=== PATIENT | male | born 1945 | race Caucasian/White ===

== ENCOUNTER 2019-01-05 12:05 | Inpatient (IN) | payer OTHER | END 2019-01-07 18:25 | disposition home or self-care (01) | LOC: EDH 12:05 → EDHIP 15:10 → 2DH 23:23 | DX: I44.1 Atrioventricular block, second degree (principal); R07.9 Chest pain, unspecified; R00.2 Palpitations; I47.1 Supraventricular tachycardia; I10 Essential (primary) hypertension; E78.5 Hyperlipidemia, unspecified ==

== ENCOUNTER 2020-02-16 16:55 | Inpatient (IN) | payer MEDICARE, OTHER ==
[~2020-02-16] VITALS: Ht 182.9 cm; Wt 105.5 kg
[~2020-02-16 16:55] MED LIST: ASCO500C18 PO; ASPI-556 PO; ATOR40TA69 PO; CARV12.580 PO; CETI10TA57 PO; DIGO250T73 PO; DOCU100T PO; DOXA8TAB81 PO; MULT-1289 PO; OMEP20CA12 PO; OXYB5TAB15 PO; SENN8.6T52 PO; SERT50TA12 PO
[2020-02-16 18:34] LABS: APPEARANCE,URINE CLOUDY (CLEAR); BILIRUBIN,URINE NEGATIVE (NEGATIVE); COLOR,URINE YELLOW (YELLOW); GLUCOSE, URINE (UA) NEGATIVE (NEGATIVE); KETONES,URINE 15 mg/dL (NEGATIVE); LEUKOCYTE ESTERASE ,URINE MODERATE (NEGATIVE); NITRATE,URINE NEGATIVE (NEGATIVE); OCCULT BLOOD,URINE NEGATIVE (NEGATIVE); PH,URINE 5.5 (5.0-8.0); PROTEIN,URINE 100 mg/dL (NEGATIVE); UROBILINOGEN,URINE 0.2 mg/dL (0.2-1.0)
[2020-02-16 18:39] LABS: BASOPHILS % (AUTO) 0.3 % (0.0-5.0); HEMATOCRIT 40.6 % (42-54); LYMPHOCYTES % (AUTO) 5.8 % (21.0-51.0); MEAN CORPUSCULAR HEMOGLOBIN 34.6 pg (27.0-33.0); MEAN CORPUSCULAR HGB CONC 35.2 g/dL (32.0-36.0); MEAN CORPUSCULAR VOLUME 98.3 fL (79-99); MONOCYTES % (AUTO) 8.5 % (3.0-13.0); NEUTROPHILS % (AUTO) 84.7 % (40.0-77.0); PLATELET COUNT (AUTO) 184 K/uL (130-400); RED BLOOD CELL COUNT(AUTO) 4.13 MIL/uL (4.50-6.20); RED CELL DISTRIBUTION WIDTH 11.9 % (11.0-15.5); WHITE BLOOD COUNT (AUTO) 26.8 K/uL (4.8-10.8)
[2020-02-16 18:51] LABS: BACTERIA,URINE Moderate /HPF (None Seen); MUCUS,URINE Moderate LPF (None Seen); RBC,URINE 0-1 /HPF (0-1); SQUAMOUS EPITHELIAL CELL,UR Few /HPF (0-2); WBC,URINE 26-50 /HPF (0-1)
[2020-02-16 18:55] LABS: CREATININE 1.4 mg/dL (0.5-1.5); POTASSIUM 3.8 mmol/L (3.5-5.1)
[2020-02-16 18:59] LABS: ALBUMIN 3.7 g/dL (3.5-5.0); BILIRUBIN,TOTAL 0.8 mg/dL (0.2-1.0); TOTAL PROTEIN, SERUM 7.2 g/dL (6.0-8.3)
[2020-02-16 19:32] LABS: INR 1.03 (0.85-1.15); PARTIAL THROMBOPLASTIN TIME 33.8 SEC (26.3-35.5); PROTHROMBIN TIME 11.1 SEC (9.6-11.6)
[2020-02-16] MEDS ORDERED: MEROPENEM 500 MG VIAL ONE (19:48)
[2020-02-16 19:53] LABS: CREATINE KINASE, TOTAL 90 U/L (21-232); MYOGLOBIN 132 ng/mL (10-92); TROPONIN I < 0.04 ng/mL (0.00-0.06)
[2020-02-16] MEDS ORDERED: ONDANSETRON HCL 4 MG/2 ML VIAL IV PRN (20:45)
[2020-02-16] MEDS: MEROPENEM 1 GM VIAL IVP SCH (20:45)
[2020-02-16] MEDS ORDERED: ACETAMINOPHEN 325 MG TAB PO PRN ×2 (20:45)
[2020-02-16] MEDS: SODIUM CHLORIDE 0.9% 1000ML 1,000 ML IV SCH (20:45)
[2020-02-16] MEDS ORDERED: LACTULOSE 20 GM/30 ML UDCUP PO PRN (20:45)
[2020-02-16] MEDS: FAMOTIDINE/PF 20 MG/2 ML VIAL IV SCH (21:00)
[2020-02-16] MEDS: OXYBUTYNIN 5 MG TAB.SR.24H PO SCH (21:15)
[2020-02-16] MEDS: PHENAZOPYRIDINE HCL 200 MG TABLET PO SCH (21:45)
[2020-02-16] MEDS ORDERED: PHENAZOPYRIDINE HCL 200 MG TABLET ONE (22:53)
[2020-02-17] VITALS (7 sets, daily range): BP systolic 123–138; BP diastolic 56–72
[2020-02-17] MEDS ORDERED: DILT-19 PO (00:59)
[2020-02-17] MEDS ORDERED: PSYL1CAP2 PO (01:08)
[2020-02-17] MEDS ORDERED: METH500T6 PO (01:08)
[2020-02-17] MEDS: SODIUM CHLORIDE 0.9% 1000ML 1,000 ML IV SCH (01:21)
--- NOTE | 2020-02-17 03:56 | NUR ---
NOTE NOTIFIED Nataliia JOSE NP THAT PATIENT HAD BORDEN REMOVED. VOIDED ALMOST 8 HRS IN DIAPER POST REMOVAL. A BLADDER SCAN WAS DONE AND FOUND POST RESIDUAL BLADDER SCAN READING 355ML. INSTRUCTED TO WAIT ANOTHER 6HRS AND IF PATIENT HAS NOT VOIDED AGAIN, DO BLADDER SCAN. IF OUTPUT GREATER THAN 250ML, INSERT BORDEN. Addendum: 02/17/20 at 0404 by FREDDIE LYN RN RN DISREGARD NOTE. WRONG PATIENT.
--- NOTE | 2020-02-17 03:59 | NUR ---
NOTE INFORMED Nataliia JOSE BUSINESS ANALYST OF HOME MEDICATIONS READY TO REVIEW.
[2020-02-17 04:55] LABS: BASOPHILS % (AUTO) 0.2 % (0.0-5.0); EOSINOPHILS % (AUTO) 0.1 % (0.0-8.0); HEMATOCRIT 38.1 % (42-54); LYMPHOCYTES % (AUTO) 6.3 % (21.0-51.0); MEAN CORPUSCULAR HEMOGLOBIN 33.9 pg (27.0-33.0); MEAN CORPUSCULAR HGB CONC 33.9 g/dL (32.0-36.0); MEAN CORPUSCULAR VOLUME 100.3 fL (79-99); MONOCYTES % (AUTO) 8.9 % (3.0-13.0); NEUTROPHILS % (AUTO) 83.2 % (40.0-77.0); PLATELET COUNT (AUTO) 178 K/uL (130-400); RED CELL DISTRIBUTION WIDTH 12.1 % (11.0-15.5); WHITE BLOOD COUNT (AUTO) 24.6 K/uL (4.8-10.8)
[2020-02-17 05:40] LABS: ALBUMIN 3.3 g/dL (3.5-5.0); BILIRUBIN,TOTAL 0.7 mg/dL (0.2-1.0); CREATININE 1.1 mg/dL (0.5-1.5); POTASSIUM 3.6 mmol/L (3.5-5.1); TOTAL PROTEIN, SERUM 6.5 g/dL (6.0-8.3)
[2020-02-17] MEDS: MEROPENEM 1 GM VIAL IVP SCH ×3 (05:49→20:44)
--- NOTE | 2020-02-17 09:37 | NUR ---
DR QUINONEZ PAGED REGARDING CONSULT. PENDING CB
[2020-02-17] MEDS: PHENAZOPYRIDINE HCL 200 MG TABLET PO SCH ×2 (09:43→20:43)
[2020-02-17] MEDS: OXYBUTYNIN 5 MG TAB.SR.24H PO SCH (09:43)
[2020-02-17] MEDS: FAMOTIDINE/PF 20 MG/2 ML VIAL IV SCH (09:43)
[2020-02-17] MEDS ORDERED: CYCLOBENZAPRINE HCL 10 MG TABLET PO PRN (10:15)
--- NOTE | 2020-02-17 12:21 | NUR ---
INITIAL SW spoke to patient's spouse, Robyn Erazo, . Patient has no home services. DME: [facility]. Patient is able to complete ADL's independently and drives. [place]CP is [place] . Pharmacy is [place] . DCP is home. Addendum: 02/17/20 at 1224 by SHORTY CERVANTES SS Amended: Links added.
[2020-02-17] MEDS ORDERED: IOHEXOL-350 75 ML VIAL IV ONE (18:18)
[2020-02-17] MEDS: NAPROXEN 500 MG TABLET PO SCH (20:37)
[2020-02-17] MEDS: CARVEDILOL 12.5 MG TABLET PO SCH (20:44)
[2020-02-17] MEDS: DOCUSATE SODIUM 100 MG CAP PO SCH (20:44)
[2020-02-17] MEDS: ATORVASTATIN CALCIUM 20 MG TABLET PO SCH (20:44)
[2020-02-18 03:36] VITALS: BP 130/69
[2020-02-18] MEDS: SODIUM CHLORIDE 0.9% 1000ML 1,000 ML IV SCH (03:40)
[2020-02-18 05:34] LABS: BASOPHILS % (AUTO) 0.3 % (0.0-5.0); EOSINOPHILS % (AUTO) 1.5 % (0.0-8.0); HEMATOCRIT 35.3 % (42-54); MEAN CORPUSCULAR HEMOGLOBIN 34.1 pg (27.0-33.0); MEAN CORPUSCULAR HGB CONC 33.7 g/dL (32.0-36.0); MEAN CORPUSCULAR VOLUME 101.1 fL (79-99); MONOCYTES % (AUTO) 9.3 % (3.0-13.0); NEUTROPHILS % (AUTO) 80.6 % (40.0-77.0); PLATELET COUNT (AUTO) 169 K/uL (130-400); RED BLOOD CELL COUNT(AUTO) 3.49 MIL/uL (4.50-6.20); RED CELL DISTRIBUTION WIDTH 12.2 % (11.0-15.5); WHITE BLOOD COUNT (AUTO) 20.2 K/uL (4.8-10.8)
[2020-02-18] MEDS: MEROPENEM 1 GM VIAL IVP SCH (05:37)
[2020-02-18 05:51] LABS: ALBUMIN 2.8 g/dL (3.5-5.0); BILIRUBIN,TOTAL 0.4 mg/dL (0.2-1.0); CREATININE 0.9 mg/dL (0.5-1.5); POTASSIUM 3.6 mmol/L (3.5-5.1)
[2020-02-18 08:00] VITALS: BP 139/69
[2020-02-18] MEDS: ASPIRIN 81 MG EC TAB PO SCH (09:00)
[2020-02-18] MEDS: NAPROXEN 500 MG TABLET PO SCH ×2 (09:00→21:17)
[2020-02-18] MEDS: DOXAZOSIN MESYLATE 2 MG TABLET PO SCH (09:00)
[2020-02-18] MEDS: CARVEDILOL 12.5 MG TABLET PO SCH ×2 (09:00→21:00)
[2020-02-18] MEDS: PANTOPRAZOLE SODIUM 40 MG TABLET.DR PO SCH (09:00)
[2020-02-18] MEDS ORDERED: TAMSULOSIN HCL 0.4 MG CAP.ER.24H PO SCH (09:00)
[2020-02-18] MEDS: DILTIAZEM HCL 120 MG CAP.SR.24H PO SCH (09:00)
[2020-02-18] MEDS: PSYLLIUM SEED 1 EACH PACKET PO SCH (09:00)
[2020-02-18] MEDS ORDERED: OXYBUTYNIN CHLORIDE 5 MG TABLET PO SCH (09:00)
[2020-02-18] MEDS: DOCUSATE SODIUM 100 MG CAP PO SCH ×2 (09:00→21:00)
[2020-02-18] MEDS: SERTRALINE HCL 50 MG TABLET PO SCH (09:00)
[2020-02-18] MEDS: SENNOSIDES 8.6 MG TABLET PO SCH (09:00)
[2020-02-18] MEDS: ASCORBIC ACID 500 MG TAB PO SCH (09:00)
[2020-02-18] MEDS: MULTIVITAMIN WITH MINERALS TABLET PO SCH (09:00)
[2020-02-18] MEDS: PHENAZOPYRIDINE HCL 200 MG TABLET PO SCH ×2 (10:17→21:18)
[2020-02-18 11:13] VITALS: BP 109/58
[2020-02-18] MEDS ORDERED: CEFTRIAXONE SODIUM 1 GM IVP SCH (11:45)
[2020-02-18 16:00] VITALS: BP 138/70
[2020-02-18 19:30] VITALS: BP 135/69
[2020-02-18] MEDS: ATORVASTATIN CALCIUM 20 MG TABLET PO SCH (21:00)
[2020-02-18] MEDS: LEVOFLOXACIN 500 MG TABLET PO SCH (21:15)
[2020-02-18 23:04] VITALS: BP 132/54
[2020-02-19] MEDS: SODIUM CHLORIDE 0.9% 1000ML 1,000 ML IV SCH (03:40)
[2020-02-19 04:00] VITALS: BP 145/76
[2020-02-19 05:35] LABS: HEMATOCRIT 36.8 % (42-54); MEAN CORPUSCULAR HEMOGLOBIN 33.2 pg (27.0-33.0); MEAN CORPUSCULAR HGB CONC 33.4 g/dL (32.0-36.0); MEAN CORPUSCULAR VOLUME 99.5 fL (79-99); PLATELET COUNT (AUTO) 204 K/uL (130-400); WHITE BLOOD COUNT (AUTO) 13.5 K/uL (4.8-10.8)
[2020-02-19 05:44] LABS: BAND NEUTROPHILS % (MANUAL) 4 % (0-2); EOSINOPHILS % (MANUAL) 4 % (1-6); LYMPHOCYTES % (MANUAL) 9 % (22-44); MAN.DIFF COMMENT-IMPRESSION MANUAL DIFFERENTIAL; MONOCYTES % (MANUAL) 8 % (2-9); PLATELET MORPHOLOGY COMMENT ADEQUATE; SEGMENTED NEUTROPHILS % 75 % (40-70)
[2020-02-19 05:55] LABS: ALBUMIN 2.9 g/dL (3.5-5.0); BILIRUBIN,TOTAL 0.3 mg/dL (0.2-1.0); CREATININE 0.8 mg/dL (0.5-1.5); POTASSIUM 3.5 mmol/L (3.5-5.1); TOTAL PROTEIN, SERUM 6.2 g/dL (6.0-8.3)
[2020-02-19 07:50] VITALS: BP 149/73
[2020-02-19] MEDS: PSYLLIUM SEED 1 EACH PACKET PO SCH (09:00)
[2020-02-19] MEDS: NAPROXEN 500 MG TABLET PO SCH (09:00)
[2020-02-19] MEDS: DOCUSATE SODIUM 100 MG CAP PO SCH (09:00)
[2020-02-19] MEDS: PANTOPRAZOLE SODIUM 40 MG TABLET.DR PO SCH (09:00)
[2020-02-19] MEDS: SENNOSIDES 8.6 MG TABLET PO SCH (09:00)
[2020-02-19] MEDS: ASPIRIN 81 MG EC TAB PO SCH (09:00)
[2020-02-19] MEDS: SERTRALINE HCL 50 MG TABLET PO SCH (09:00)
[2020-02-19] MEDS: DOXAZOSIN MESYLATE 2 MG TABLET PO SCH (09:00)
[2020-02-19] MEDS: CARVEDILOL 12.5 MG TABLET PO SCH (09:00)
[2020-02-19] MEDS: DILTIAZEM HCL 120 MG CAP.SR.24H PO SCH (09:00)
[2020-02-19] MEDS: ASCORBIC ACID 500 MG TAB PO SCH (09:00)
[2020-02-19] MEDS: MULTIVITAMIN WITH MINERALS TABLET PO SCH (09:00)
[2020-02-19] MEDS: PHENAZOPYRIDINE HCL 200 MG TABLET PO SCH (09:01)
[2020-02-19] MEDS: LEVOFLOXACIN 500 MG TABLET PO SCH (09:01)
[2020-02-19] MEDS ORDERED: LEVO500T2 PO (10:49)
[2020-02-19] MEDS ORDERED: NAPR-337 PO (10:55)
[2020-02-19 11:35] VITALS: BP 152/71
--- NOTE | 2020-02-19 12:00 | NUR ---
DISCHARGE HOME . SUMMARY REVIEW WITH PT. DENIES ANY DISCOMFORT WHEN HE VOIDS, PT TO FOLLOW WITH ANTIBOTICS X 21 DAYS PER RECOMMENDATION... PRESCRIP . GIVEN FOR PICKUP. ,, SL TO HIS LFA ,DC NOTED NO HEMATOMA OR REDNESS .A SABA BRYANT APPLICATION ON.
== END 2020-02-19 11:52 | disposition home or self-care (01) | DRG 690 ==
LOC: EDH 16:55 → EDHIP 20:43 → 3CH 02-17 00:08
PROVIDERS: ADMIT Internal Medicine; ATTEND Internal Medicine
DX: N39.0 Urinary tract infection, site not specified (principal); N41.0 Acute prostatitis; I25.10 Atherosclerotic heart disease of native coronary artery without angina pectoris; I48.0 Paroxysmal atrial fibrillation; K57.30 Diverticulosis of large intestine without perforation or abscess without bleeding; N40.1 Benign prostatic hyperplasia with lower urinary tract symptoms; R33.8 Other retention of urine; I10 Essential (primary) hypertension; E78.5 Hyperlipidemia, unspecified; Z68.31 Body mass index [BMI] 31.0-31.9, adult; E66.9 Obesity, unspecified; J45.909 Unspecified asthma, uncomplicated; K59.00 Constipation, unspecified; Z95.0 Presence of cardiac pacemaker; K76.0 Fatty (change of) liver, not elsewhere classified; Z80.1 Family history of malignant neoplasm of trachea, bronchus and lung; Z90.49 Acquired absence of other specified parts of digestive tract
CPT/HCPCS: 36415; 71045; 74176; 74177; 80053; 81001; 82550; 83605; 83874; 84145; 84153; 84484; 85025; 85610; 85730; 87040; 87077; 87088; 87186; 93005; G0378; J2185; J3490; J7030; Q9967

== ENCOUNTER → 2020-06-28 | Outpatient (CLI) | payer OTHER ==
[~2020-06-28] MED LIST changes: -DIGO250T73 PO; +DILT-19 PO; +METH500T6 PO; +NAPR-337 PO; +PSYL1CAP2 PO
== END | disposition home or self-care (01) ==
LOC: SHCH 11:01
PROVIDERS: ATTEND Internal Medicine Cardiovascular Disease
DX: I48.0 Paroxysmal atrial fibrillation (principal); I47.1 Supraventricular tachycardia
CPT/HCPCS: 93306; 93356

== ENCOUNTER → 2020-08-13 | Outpatient (CLI) | payer OTHER ==
[2020-08-13] MEDS: REGADENOSON 0.4 MG/5 ML PF SYG IVP SCH (11:20)
== END | disposition home or self-care (01) ==
LOC: SHCH 08:10
PROVIDERS: ATTEND Internal Medicine Cardiovascular Disease
DX: I47.1 Supraventricular tachycardia (principal)
CPT/HCPCS: 78452; 93017; 96374; A9500 ×2; J2785

== ENCOUNTER 2020-10-09 07:00 | Day surgery (SDC) | payer OTHER ==
[2020-10-05 09:53] LABS: BASOPHILS % (AUTO) 0.6 % (0.0-5.0); EOSINOPHILS % (AUTO) 3.5 % (0.0-8.0); HEMATOCRIT 46.6 % (42-54); MEAN CORPUSCULAR HEMOGLOBIN 33.9 pg (27.0-33.0); MEAN CORPUSCULAR HGB CONC 33.7 g/dL (32.0-36.0); MEAN CORPUSCULAR VOLUME 100.6 fL (79-99); NEUTROPHILS % (AUTO) 70.5 % (40.0-77.0); PLATELET COUNT (AUTO) 213 K/uL (130-400); RED BLOOD CELL COUNT(AUTO) 4.63 MIL/uL (4.50-6.20); RED CELL DISTRIBUTION WIDTH 11.4 % (11.0-15.5)
[2020-10-05 10:04] LABS: CREATININE 0.9 mg/dL (0.5-1.5); POTASSIUM 4.6 mmol/L (3.5-5.1)
[2020-10-05 10:06] LABS: INR 1.02 (0.85-1.15); PARTIAL THROMBOPLASTIN TIME 32.1 SEC (26.3-35.5)
[2020-10-05 10:16] LABS: APPEARANCE,URINE Clear (CLEAR); BILIRUBIN,URINE Negative (NEGATIVE); COLOR,URINE Yellow (YELLOW); GLUCOSE, URINE (UA) Negative (NEGATIVE); KETONES,URINE Negative (NEGATIVE); LEUKOCYTE ESTERASE ,URINE Negative (NEGATIVE); NITRATE,URINE Negative (NEGATIVE); OCCULT BLOOD,URINE Negative (NEGATIVE); PROTEIN,URINE Negative (NEGATIVE); UROBILINOGEN,URINE 0.2 mg/dL (0.2-1.0)
[2020-10-08 09:26] VITALS: BP 190/97
[~2020-10-09] VITALS: Ht 185.4 cm; Wt 103.3 kg
[2020-10-09] VITALS (9 sets, daily range): BP systolic 124–163; BP diastolic 65–82
[~2020-10-09 07:00] MED LIST changes: -CARV12.580 PO; +CARV25TA PO; -DILT-19 PO; +LOSA50TA64 PO; -METH500T6 PO; -NAPR-337 PO; -OMEP20CA12 PO; +PANT40TA54 PO
[2020-10-09] MEDS ORDERED: SODIUM CHLORIDE 0.9% 1000ML 1,000 ML IV SCH ×2 (08:00→11:45)
[2020-10-09] MEDS ORDERED: NITROGLYCERIN 2 MG/VIAL VIAL IV ONE (09:46)
[2020-10-09] MEDS ORDERED: IOHEXOL 350 MG/ML 100ML INFUS..BTL IV ONE (09:46)
[2020-10-09] MEDS ORDERED: LIDOCAINE HCL 2% 20ML ONE (09:46)
[2020-10-09] MEDS ORDERED: HEPARIN SODIUM 1000UNIT/ML 10ML VIAL ONE (09:49)
[2020-10-09] MEDS ORDERED: NICARDIPINE HCL 25 MG/10 ML ML IV ONE (09:50)
[2020-10-09] MEDS ORDERED: MEPERIDINE-PF 25 MG/ML SYG ONE (10:42)
[2020-10-09] MEDS ORDERED: MIDAZOLAM HCL 1 MG/ML 2ML VIAL ONE (10:42)
== END 2020-10-09 15:30 | disposition home or self-care (01) ==
LOC: DAH 07:00
PROVIDERS: ATTEND Internal Medicine Cardiovascular Disease
DX: I25.118 Atherosclerotic heart disease of native coronary artery with other forms of angina pectoris (principal); I10 Essential (primary) hypertension; E78.5 Hyperlipidemia, unspecified; Z88.0 Allergy status to penicillin; Z79.01 Long term (current) use of anticoagulants; Z79.899 Other long term (current) drug therapy
CPT/HCPCS: 36415; 71045; 80048; 81003; 85025; 85610; 85730; 93005; 93458; A4215; A4216; A4221; A4222; A4223 ×3; A4606; A4663; C1769; C1894; J1644 ×2; J2175; J2250; J3490 ×3; J7030; Q9965 ×2; Q9967; 99156; 99157

== ENCOUNTER 2024-06-03 05:48 | Day surgery (SDC) | payer OTHER ==
[2024-06-01 10:11] LABS: BASOPHILS # (AUTO) 0.04 K/uL (0.00-0.20); BASOPHILS % (AUTO) 0.4 % (0.0-5.0); EOSINOPHILS # (AUTO) 0.21 K/uL (0.00-0.70); EOSINOPHILS % (AUTO) 2.2 % (0.0-8.0); HEMATOCRIT 45.4 % (42-54); IMMATURE GRANULOCYTE ABSOLUTE 0.04 K/uL (0-1); LYMPHOCYTES # (AUTO) 1.9 K/uL (1.0-4.8); LYMPHOCYTES % (AUTO) 19.8 % (21.0-51.0); MEAN CORPUSCULAR HEMOGLOBIN 33.4 pg (27.0-33.0); MEAN CORPUSCULAR HGB CONC 33.7 g/dL (32.0-36.0); MEAN CORPUSCULAR VOLUME 99.1 fL (79-99); MONOCYTES # (AUTO) 0.9 K/uL (0.1-1.0); MONOCYTES % (AUTO) 9.9 % (3.0-13.0); NEUTROPHILS # (AUTO) 6.3 K/uL (1.8-7.7); NEUTROPHILS % (AUTO) 67.3 % (40.0-77.0); PLATELET COUNT (AUTO) 216 K/uL (130-400); RED BLOOD CELL COUNT(AUTO) 4.58 MIL/uL (4.50-6.20); RED CELL DISTRIBUTION WIDTH 12.1 % (11.0-15.5); WHITE BLOOD COUNT (AUTO) 9.4 K/uL (4.8-10.8)
[2024-06-01 10:18] LABS: POTASSIUM 4.9 mmol/L (3.5-5.1)
[2024-06-01 10:21] LABS: INR 1.06 (0.85-1.15); PROTHROMBIN TIME 11.4 SEC (9.6-11.6)
[2024-06-01 10:22] LABS: PARTIAL THROMBOPLASTIN TIME 28.5 SEC (26.3-35.5)
[2024-06-01 10:46] VITALS: BP 137/69; PULSE 68; RESP 17
[2024-06-03] VITALS (9 sets, daily range): BP systolic 116–135; BP diastolic 62–76; PULSE 60–72; RESP 12–18
[~2024-06-03] VITALS: Ht 182.9 cm; Wt 106.1 kg
[~2024-06-03 05:48] MED LIST changes: +ACETIC ACID AU; +AMLO-258 PO; +APIX5TAB PO; -ASPI-556 PO; +BETHAMETHASONE TP; +DICL100G60 TP; -DOXA8TAB81 PO; +OLOD4MIS2 IH; +OMEP20CA12 PO; -OXYB5TAB15 PO; -PANT40TA54 PO; -PSYL1CAP2 PO; -SERT50TA12 PO; +TAMS-1 PO; +TAZAROTENE TP; +fiber PO
[2024-06-03] MEDS ORDERED: VANCOMYCIN 1G/250ML KIT 500 ML IV ONE (07:11)
[2024-06-03] MEDS ORDERED: BUPIVACAINE/PF 0.25% 30ML VIAL IJ ONE (07:11)
[2024-06-03] MEDS ORDERED: LIDOCAINE HCL 1% MDV 50ML VIAL ONE (07:11)
[2024-06-03] MEDS ORDERED: MEPERIDINE-PF 25 MG/ML SYG ONE ×3 (07:34→08:28)
[2024-06-03] MEDS ORDERED: MIDAZOLAM HCL 1 MG/ML 2ML VIAL ONE ×3 (07:34→08:29)
[2024-06-03] MEDS ORDERED: THROMBIN-JMI 5000 UNIT/VIAL TP ONE (08:40)
[2024-06-03] MEDS ORDERED: FLUT16H NASAL (08:50)
[2024-06-03] MEDS ORDERED: ACET15SO13 OT (08:50)
[2024-06-03] MEDS ORDERED: BACITRACIN 1 EACH PACKET TP ONE (08:53)
[2024-06-03] MEDS: 0.9%NACL 1000ML 1,000 ML IV SCH (09:22)
[2024-06-03] MEDS ORDERED: ACETAMINOPHEN WITH CODEINE 1 TAB TAB PO PRN ×2 (10:00)
[2024-06-03] MEDS ORDERED: DOXY100C5 PO (12:53)
== END 2024-06-03 14:00 | disposition home or self-care (01) ==
LOC: DAH 05:48
PROVIDERS: ATTEND Internal Medicine Cardiovascular Disease
DX: Z45.010 Encounter for checking and testing of cardiac pacemaker pulse generator [battery] (principal); I48.0 Paroxysmal atrial fibrillation; I42.9 Cardiomyopathy, unspecified; I49.5 Sick sinus syndrome; I10 Essential (primary) hypertension; E78.5 Hyperlipidemia, unspecified; Z88.0 Allergy status to penicillin; Z87.891 Personal history of nicotine dependence; Z79.899 Other long term (current) drug therapy
CPT/HCPCS: 80048; 85025; 85610; 85730; 36415; 93005; 33228; C1785; A4663; J7030; J0665; J2250 ×3; J3370; J3490 ×2; J2175 ×3; A4215; A4222; A4221; A4216; A4606; A4223 ×3; 99156; 99157

== ENCOUNTER 2024-11-22 10:03 | Inpatient (IN) | payer MEDICARE, OTHER ==
[~2024-11-22] VITALS: Ht 182.9 cm; Wt 102.0 kg
[~2024-11-22 10:03] MED LIST changes: +ACET15SO13 OT; -ACETIC ACID AU; +DOXY100C5 PO; +FLUT16H NASAL
--- NOTE | 2024-11-22 10:09 | ERN ---
ED Note History of Present Illness Stated Complaint: SOB Time Seen by MD: 10:04 Dictation: PATIENT IS AN 79-YEAR-OLD MALE HERE WITH A HISTORY OF SHORTNESS A BREATH ON E XERTION AND EDEMA TO HIS LOWER EXTREMITIES FOR ONE WEEK. HE DENIES FEVER CHILLS NAUSEA VOMITING NO CHEST PAIN. NO LOSS OF TASTE OR SMELL. STATES HE HAS A HISTORY OF CAD PACEMAKER AND HYPERTENSION. PATIENT OF . Allergies: Coded Allergies: Penicillins (Unverified Allergy, Intermediate, 02/17/20) penicillin G (Unverified Allergy, Unknown, 08/10/20) Home Meds Reported Medications Acetic Acid (Acetic Acid) 2 % Solution, 15 ML OT AD PRN for EAR SKIN IRRITATION, ML 06/03/24 Olodaterol HCl (Striverdi Respimat) 2.5 Mcg/Actuation Mist.inhal, 2 PUFF IH AD P RN for SHORTNESS OF BREATH 06/01/24 [bethamethasone] No Conflict Check, 1 APPL TP AD PRN for RASH 06/01/24 Diclofenac Sodium (Diclofenac Sodium) 1 % Gel..gram., 1 APPL TP QID PRN for PAIN 06/01/24 [tazorotene] No Conflict Check, 1 APPL TP AD 06/01/24 [fiber] No Conflict Check, 5 CAP PO DAILY 06/01/24 Omeprazole (Omeprazole) 20 Mg Capsule.dr, 20 MG PO BID, CAP 06/01/24 Tamsulosin HCl (Flomax) 0.4 Mg Cap.er.24h, 0.4 MG PO AM, CAPSULE. 06/01/24 Apixaban (Eliquis) 5 Mg Tablet, 5 MG PO BID, TAB RESUME ON 06/07/2024 06/01/24 Amlodipine Besylate (Amlodipine Besylate) 10 Mg Tablet, 10 MG PO AM for 30 Days, #30 TAB 0 Refills 06/01/24 Losartan Potassium (Losartan Potassium) 50 Mg Tablet, 75 MG PO BID, TAB 10/08/20 Carvedilol (Carvedilol) 25 Mg Tablet, 25 MG PO BID, TAB 10/08/20 Ascorbic Acid (Vitamin C) 500 Mg Capsule, 500 MG PO DAILY, CAP 01/05/19 Multivit-Min/FA/Lycopen/Lutein (Centrum Silver Men Tablet) 1 Each Tablet, 1 EACH PO DAILY, TAB 01/05/19 Cetirizine HCl (Cetirizine HCl) 10 Mg Tablet, 10 MG PO DAILY, TAB 01/05/19 Atorvastatin Calcium (LIPITOR) 40 Mg Tablet, 20 MG PO HS, TAB 01/05/19 Sennosides (Sennosides) 8.6 Mg Tablet, 8.6 MG PO 4x/day PRN for CONSTIPATION, TAB 01/05/19 Docusate Sodium (Docusate Sodium) 100 Mg Tablet, 100 MG PO BID, TAB 01/05/19 Past Medical History Surgical History: Pacer/AICD Family History: CAD RN Note Reviewed/Agreed w/PFSH: Yes Review of System Dictation CONSTITUTIONAL: NEGATIVE EXCEPT FOR HPI HEAD/FACE: NEGATIVE EXCEPT FOR HPI EENT: NEGATIVE EXCEPT FOR HPI RESPIRATORY: NEGATIVE EXCEPT FOR HPI SOB/EDEMA GASTROINTESTINAL/ABDOMINAL: NEGATIVE EXCEPT FOR HPI GENITOURINARY: NEGATIVE EXCEPT FOR HPI MUSCULOSKELETAL: NEGATIVE EXCEPT FOR HPI INTEGUMENTARY: NEGATIVE EXCEPT FOR HPI NEUROLOGICAL/PSYCH: NEGATIVE EXCEPT FOR HPI HEMATOLOGIC/LYMPHATIC: NEGATIVE EXCEPT FOR HPI ALL SYSTEMS NEGATIVE, EXCEPT NOTED ABOVE. 13 POINT REVIEW OF SYSTEMS ASSESSED AND ALL NEGATIVE EXCEPT FOR ABOVE. Initial Vital Sign VS Vital Signs Date Time Temp Pulse Resp B/P (MAP) Pulse Ox O2 Delivery O2 Flow Rate FiO2 11/22/24 10:09 97.9 73 24 129/73 90 Room Air 0 11/22/24 10:15 21 Physical Exam Dictation VITAL SIGNS REVIEWED GENERAL APPEARANCE: ALERT, ORIENTED X 3, MILD ACUTE DISTRESS, WELL DEVELOPED, NOURISHED. HEAD AND FACE: NON-TRAUMATIC. EYES: PERRL, PINK CONJUNCTIVAS, EYELID NO TRAUMA, ANTERIOR CHAMBER WITH ARCUS SENILIS. EARS: PINNAS INTACT AND NO SIGNS OF TRAUMA OR ERYTHEMA EAR CANALS CLEAR AND NO DISCHARGE TM NO ERYTHEMA NOSE: NO DISCHARGE, NO BLEEDING. OROPHARYNX: MOUTH NORMAL, TONGUE PINK, PHARYNX CLEAR,NO ERYTHEMA, TONSILS NO EXUDATES, NO ABSCESSES NOTED, MUCOUS MEMBRANE MOIST NECK: SUPPLE, NON-TENDER, NO THYROMEGALY, NO MASSES, NO JVD, NO BRUITS BREAST:DEFERRED CHEST:NO TENDERNESS, NO CREPITUS, NO PARADOXICAL MOVEMENT, NO RETRACTIONS LUNGS:CLEAR, WELL-VENTILATED, SYMMETRIC, NO RALES, NO WHEEZING, NO RHONCHI, NO STRIDOR, GOOD BREATH SOUNDS BILATERALLY HEART: REGULAR RATE, REGULAR RHYTHM, NO MURMUR, NO GALLOPS VASCULAR: 2+ PERIPHERAL EDEMA LOWER EXTREMITIES TO MID ANKLE, ABDOMEN: SOFT, POSITIVE BOWEL SOUNDS, NONDISTENDED, NO GUARDING, NONTENDER, NO REBOUND, NO MASSES NO HEPATOMEGALY, NO SPLENOMEGALY, NO SMART'S SIGN, NO HERNIAS. RECTAL: DEFERRED GENITAL: DEFERRED NEUROLOGICAL: NORMAL SPEECH, MOTOR FUNCTION INTACT, SENSORY FUNCTION INTACT MUSCULOSKELETAL: NECK NONTENDER, FULL RANGE OF MOTION, BACK NONTENDER, FULL RANGE OF MOTION, EXTREMITIES: NONTENDER, FULL RANGE OF MOTION SKIN: COLOR PINK, DRY, NO TURGOR, NO RASH, NO LACERATIONS, NO ABRASIONS, NO CONTUSIONS. LYMPHATIC: DEFERRED Results (Laboratory/Radiology) Laboratory/Radiology Laboratory Tests Test 11/22/24 10:25 White Blood Count 11.6 K/uL (4.8-10.8) H Red Blood Count 4.13 MIL/uL (4.50-6.20) L Hemoglobin 13.3 g/dL (14.0-18.0) L Hematocrit 40.0 % (42-54) L Mean Corpuscular Volume 96.9 fL (79-99) Mean Corpuscular Hemoglobin 32.2 pg (27.0-33.0) Mean Corpuscular Hemoglobin Concent 33.3 g/dL (32.0-36.0) Red Cell Distribution Width 12.4 % (11.0-15.5) Platelet Count 253 K/uL (130-400) Mean Platelet Volume 8.8 fL (7.5-10.5) Immature Granulocyte % (Auto) 0.7 % (0-1) Neutrophils (%) (Auto) 74.3 % (40.0-77.0) Lymphocytes (%) (Auto) 6.9 % (21.0-51.0) L Monocytes (%) (Auto) 10.0 % (3.0-13.0) Eosinophils (%) (Auto) 7.7 % (0.0-8.0) Basophils (%) (Auto) 0.4 % (0.0-5.0) Neutrophils # (Auto) 8.6 K/uL (1.8-7.7) H Lymphocytes # (Auto) 0.8 K/uL (1.0-4.8) L Monocytes # (Auto) 1.2 K/uL (0.1-1.0) H Eosinophils # (Auto) 0.89 K/uL (0.00-0.70) H Basophils # (Auto) 0.05 K/uL (0.00-0.20) Absolute Immature Granulocyte (auto 0.08 K/uL (0-1) Nucleated Red Blood Cells 0.0 % (0.0-0.19) White Cell Morphology Comment See comments Sodium Level 130 mmol/L (136-145) L Potassium Level 4.4 mmol/L (3.5-5.1) Chloride Level 91 mmol/L (101-111) L Carbon Dioxide Level 32 mmol/L (21-32) Blood Urea Nitrogen 14 mg/dL (7-18) Creatinine 0.9 mg/dL (0.5-1.3) Glomerular Filtration Rate Calc 86 mL/min (>90) Random Glucose 97 mg/dL (70-105) Total Calcium 9.1 mg/dL (8.5-10.1) Magnesium Level 1.90 mg/dL (1.80-2.40) Troponin I High Sensitivity 20 ng/L (4-75) B-Type Natriuretic Peptide 321 pg/mL (0-100) H SARS-CoV-2 Antigen (Rapid) PRESUMPTIVE NEGATIVE Labs Reviewed?: Yes EKG Comment: EKG ATRIAL PACED RHYTHM/HEART RATE 67 NO ECTOPY ED Course ED Course Orders Procedure Category Date Status Time Covid19 (Sars Antigen LAB 11/22/24 Complete Rapid) 10:06 Cbc With Differential LAB 11/22/24 Complete 10:06 B-Type Natriuretic LAB 11/22/24 Complete Peptide 10:06 Chest 1vw RAD 11/22/24 Resulted 10:06 12 Lead Ekg Tracing- EKG 11/22/24 Complete Technical 10:06 Magnesium LAB 11/22/24 Complete 10:06 Troponin I High LAB 11/22/24 Complete Sensitivity 10:06 Basic Metabolic Panel LAB 11/22/24 Complete 10:06 Furosemide 40mg Vial PHA 11/22/24 Complete (Lasix 40mg Vial) 11:30 Blood Cult STAN 11/22/24 Logged 11:47 Azithromycin 500mg+Ns PHA 11/22/24 In Process 250ml (Azithromyci 11:47 Oxygen By Nc/Pulse Ox CPOE 11/22/24 Transmitted 11:48 Albuterol 0.083% PHA 11/22/24 Complete 2.5mg/3ml (Proventil 12:00 Rapid (Group A Strep) LAB 11/22/24 Logged 12:20 Influenza Type A & B, LAB 11/22/24 Logged Rapid 12:20 Current Medications Medications (Trade) Dose Ordered Sig/Hernandez Route PRN Reason Start Time Stop Time Status Last Admin Dose Admin Albuterol Sulfate (Proventil 0.083% 2.5mg/3ml) 5 mg ONCE ONCE IH 11/22/24 12:00 11/22/24 12:01 DC Azithromycin 250 ml @ 250 mls/hr ONCE STAT IVPB 11/22/24 11:47 11/22/24 12:46 Furosemide (LASix 40MG VIAL) 80 mg ONCE ONCE IVP 11/22/24 11:30 11/22/24 11:31 DC 11/22/24 11:41 Vital Signs Date Time Temp Pulse Resp B/P (MAP) Pulse Ox O2 Delivery O2 Flow Rate FiO2 11/22/24 10:15 97.5 63 22 128/64 91 Room Air* 0 21 11/22/24 10:09 97.9 73 24 129/73 90 Room Air 0 1205, patient noted to be saturating 91% on room air we will order supplemental O2 to keep sats above 92% in addition he will be given azithromycin 500 mg IV after blood cultures were obtained for right lower lobe pneumonia patient will be admitted to the hospital. He agrees to be admitted. 1220/spoke with REVIEWED X-RAY EKG LABS AND INCLUDE INTERVENTIONS FOR PNEUMONIA AND HYPOXEMIA HE AGREED TO ADMIT PATIENT HEART Score Response (Comments) Value EKG: Repolarization changes 1 Age: > 65yrs (+2) 2 Risk Factors: 3+ risk factors (+2) 2 Initial Troponin: Normal limit (0) 0 Total 5 Medical Decision Making MDM MDM: Differential diagnosis: CHF/pneumonia/bronchitis/SARs COVID/electrolyte imbala nce/dehydration/ACS/arrhythmia Rationale: Tests considered and ordered secondary to shared decision making include: labs, ECG and radiology Previous outside records reviewed: Old ER visits. Reviewed Risk of complication and/or morbidity or mortality of patient management: Mild Medications-Per medication reconciliation yes Need for hospitalization: Patient does meet criteria for hospitalization. Patient will need to be admitted for hypoxemia and dyspnea on exertion, pulmonary toilet with the antibiotics Need for emergency major/minor surgery: No There are no social concerns with this patient. Prescription drug management Prescriptions will include symptomatic care Patient's prior external medical records from other ER visits were reviewed by me as indicated. Prior testing and results from previous visits were reviewed. Prior tests were taken into account with medical decision making and resource utilization, independent historian/historians were used to obtain complete medical history. I independently interpreted the test that were performed, results were reviewed by me and considered findings on radiology if ordered. Medical management and examination interpretation discussions were had by me with other qualified healthcare professionals as indicated for the patient's care. DX & DISP Disposition: Inpatient Decision to Admit Time: 12:06 Departure Impression: Primary Impression: Right middle lobe pneumonia Additional Impressions: Hyponatremia, CHF exacerbation, Hypoxemia Condition: Stable Referrals: NONE (PCP) Time of Disposition: 12:07 I have reviewed the case, and I agree with, Diagnosis and Plan BONI ARREOLA NP Nov 22, 2024 10:09
[2024-11-22 10:34] LABS: BASOPHILS # (AUTO) 0.05 K/uL (0.00-0.20); BASOPHILS % (AUTO) 0.4 % (0.0-5.0); EOSINOPHILS # (AUTO) 0.89 K/uL (0.00-0.70); EOSINOPHILS % (AUTO) 7.7 % (0.0-8.0); IMMATURE GRANULOCYTE ABSOLUTE 0.08 K/uL (0-1); LYMPHOCYTES # (AUTO) 0.8 K/uL (1.0-4.8); LYMPHOCYTES % (AUTO) 6.9 % (21.0-51.0); MEAN CORPUSCULAR HEMOGLOBIN 32.2 pg (27.0-33.0); MEAN CORPUSCULAR HGB CONC 33.3 g/dL (32.0-36.0); MEAN CORPUSCULAR VOLUME 96.9 fL (79-99); MONOCYTES # (AUTO) 1.2 K/uL (0.1-1.0); NEUTROPHILS # (AUTO) 8.6 K/uL (1.8-7.7); NEUTROPHILS % (AUTO) 74.3 % (40.0-77.0); PLATELET COUNT (AUTO) 253 K/uL (130-400); RED BLOOD CELL COUNT(AUTO) 4.13 MIL/uL (4.50-6.20); RED CELL DISTRIBUTION WIDTH 12.4 % (11.0-15.5); WHITE BLOOD COUNT (AUTO) 11.6 K/uL (4.8-10.8)
[2024-11-22 10:48] LABS: CREATININE 0.9 mg/dL (0.5-1.3); MAGNESIUM 1.9 mg/dL (1.80-2.40); POTASSIUM 4.4 mmol/L (3.5-5.1)
--- NOTE | 2024-11-22 10:51 | HMCIMG ---
CHEST 1VW HISTORY: Shortness of breath COMPARISON: 10/05/2020 FINDINGS: A frontal projection of the chest was obtained. Mild bilateral pulmonary infiltrates are seen may be related to mild pulmonary vascular congestion with possible superimposed pneumonitis. The heart is borderline enlarged. Pacemaker is seen entering from the left. Degenerative changes are seen. No evidence of aortic calcification is seen. IMPRESSION: 1. Mild bilateral pulmonary infiltrates are seen may be related to mild pulmonary vascular congestion with possible superimposed pneumonitis.
[2024-11-22 10:57] LABS: B-TYPE NATRIURETIC PEPTIDE 321 pg/mL (0-100)
--- NOTE | 2024-11-22 11:38 | EKG ---
[facility] Test Date: 2024-11-22 Test Time: 10:16:17 Pat Name: ALEK MARTINEZ Department: ED Room: ED Gender: M Outsole Skiver: [id number] : 1945 Requested By: BONI ARREOLA Order Number: [id number] Reading MD: Son Andrade Measurements Intervals [place] Rate: 67 P: 0 MT: 207 QRS: 41 QRSD: 99 T: 63 QT: 419 QTc: 443 Interpretive Statements Atrial-paced complexes Low voltage, extremity leads Compared to ECG 06/01/2024 10:01:21 Low QRS voltage now present Sinus rhythm no longer present Electronically Signed On 11-22-2024 17:09:03 [employer] by Son Andrade Please click the below link to view image of tracing.
[2024-11-22] MEDS: furoSEMIDE 40MG VIAL IVP ONE (11:41)
[2024-11-22 12:08] VITALS: PULSE 63; RESP 24
[2024-11-22] MEDS: ALBUTEROL 0.083% 2.5 MG/3 ML INH IH ONE (12:21)
[2024-11-22 12:27] VITALS: PULSE 64; RESP 24; O2SAT 96
[2024-11-22 12:30] LABS: RAPID GROUP A STREP negative (NEGATIVE)
[2024-11-22] MEDS ORDERED: BUDESONIDE 0.5 MG/2 ML INH IH SCH (12:30)
[2024-11-22] MEDS ORDERED: PoTASSium chl 10% ELIXIR 20MEQ 20 MEQ/15 ML UDCUP PO PRN (12:30)
[2024-11-22] MEDS ORDERED: PoTASSium chloRIDE 20MEQ/100ML 100 ML IV PRN (12:30)
[2024-11-22] MEDS ORDERED: MAGNESIUM 2GM PREMIX 50ML 50 ML IV SCH (12:30)
[2024-11-22 12:40] LABS: INFLUENZA TYPE A Negative For Type A (NEGATIVE); INFLUENZA TYPE B Negative For Type B (NEGATIVE)
[2024-11-22] MEDS: AZITHROMYCIN 500MG+NS 250ML 250 ML IVPB STA (12:54)
[2024-11-22] MEDS ORDERED: SENNOSIDES 8.6 MG TABLET PO PRN (13:00)
[2024-11-22] MEDS ORDERED: acetaMINOPHEN 500 MG TABLET PO PRN (13:00)
[2024-11-22] MEDS ORDERED: OLODATEROL HCL IH PRN (13:00)
[2024-11-22 13:19] LABS: INR 1.06 (0.85-1.15); PROTHROMBIN TIME 11.8 SEC (9.6-11.6)
[2024-11-22 13:20] LABS: PARTIAL THROMBOPLASTIN TIME 31.3 SEC (26.3-35.5)
--- NOTE | 2024-11-22 13:24 | HP ---
[facility] HISTORY [facility] PHYSICAL Date of Service: Nov 22, 2024 Time of Service: 13:11 HISTORY OF PRESENT ILLNESS: Date of service: 11/22/2024, patient was seen in ER room two 79-year-old male with underlying history of atrial fibrillation maintained on chronic anticoagulation with Eliquis, BPH, coronary artery disease, COPD, hypertension, hyperlipidemia, history of pacemaker placement who presented to the ER for further evaluation of shortness of breath.. Symptoms have been ongoing for 1 week and patient states that he has progres sively worsened. Shortness of breath is worsened with exertional activities and patient's is at bedside who states that usually, patient walks his dog twice a day, over the last several days he has not been able to due to shortness of breath and dyspnea on exertion. He has not noticed significant lower extremity edema. Denies history of heart failure. Patient is followed by heart clinic as outpatient. He has also noticed mild cough with wheezing as well. Denies any significant fevers or chills. Denies any active chest pain. Patient denies being on outpatient diuretics. He usually sleeps with two pillows at night and has noticed that he has frequent nocturia. Patient denies any pleurisy or focal weakness of upper or lower extremities. He has a history of underlying atrial fibrillation and is maintained on chronic anticoagulation with Eliquis. Patient states that he took his dose of Eliquis this morning. On presentation to the hospital, patient was noted to be afebrile with T-max of 97.9 F, heart rate of 73, blood pressure 129/73. Patient was noted to be hypoxic with O2 saturations of 90% requiring 2 L of O2 supplementation by nasal cannula. Patient received 80 mg of IV Lasix by ER provider. Chest x-ray showed bilateral infiltrates. We will admit this patient for further management of hypoxemic respiratory failure. Concerns remains that patient may be having heart failure exacerbation as well as COPD exacerbation. Patient will receive IV diuretics, IV antibiotics, IV steroids and will undergo further workup with a CT chest without contrast in 2D echocardiogram. We will anticipate hospitalization for at least 48-72 hours. REVIEW OF SYSTEMS CONSTITUTIONAL: Malaise, asthenia NEUROLOGICAL: Denies headache, amaurosis fugax, motor weakness, sensory deficit, vertigo/spinning sensation, gait abnormalities, or tremors. ENT: No hearing loss, otalgia, otorrhea, rhinitis, rhinorrhea, hoarseness, or sore throat. CARDIOVASCULAR: Denies any exertional angina, dyspnea on exertion, orthopnea, paroxysmal nocturnal dyspnea, palpitations, life-threatening arrhythmias, claudication. PULMONARY: Shortness of breath, dyspnea on exertion with mild wheezing, mild phlegmatic cough SLEEP: Denies morning headaches, daytime somnolence or napping. Denies difficulty falling asleep, staying asleep, waking from sleep. Denies knowledge of snoring. GASTROINTESTINAL: Denies any type of dysphagia to either liquids or solids. Denies nausea, vomiting, pyrosis, early satiety, abdominal pain, diarrhea, constipation, or changes in stool consistency or caliber. Denies coffee-ground emesis, hematemesis, hematochezia, or melanotic stools. GENITOURINARY: Denies frequency, urgency, nocturia, hematuria or incontinence (Storage/Irritative symptoms.) Low urinary stream, straining to void, urinary intermittency or hesitancy, splitting of the voiding stream, terminal dribbling. ENDOCRINOLOGIC: Denies polyuria, polydipsia, polyphagia or heat/cold intolerances. HEMATOLOGIC: Denies thrombophilia/previous clots, or coagulopathy/bleeding diso rders. ONCOLOGIC: Denies personal history of malignancy. DERMATOLOGIC: Denies rashes or pruritus. PSYCHIATRIC: Denies any suicidal or homicidal ideation. Denies hallucinations. ADDITIONAL PAST MEDICAL HISTORY Atrial fibrillation Coronary artery disease Urinary retention and incontinence BPH COPD History of chronic anticoagulation with Eliquis Hypertension Hyperlipidemia SOCIAL HISTORY Patient denies active smoking, reports drinking alcohol socially. Patient is a previous smoker and smoked for about 33 years and smoked two pack per day, quit in 1996 SURGICAL HISTORY Appendectomy Hemorrhoidectomy Permanent Pacemaker placement History of aqua-ablation of the prostate about three years ago History of spinal cord stimulator for management of chronic back pain Allergies: Patient has allergic reaction to penicillin with anaphylaxis Home medications: Family will be bringing home medications to be reconciled and updated Coded Allergies: Penicillins (Unverified Allergy, Intermediate, 02/17/20) penicillin G (Unverified Allergy, Unknown, 08/10/20) PHYSICAL EXAM GENERAL APPEARANCE: The patient is awake, alert, and oriented, sitting up in bed on 2 L of O2 supplementation NEUROLOGICAL: Cranial nerves II-XII grossly intact. Motor is 5/5 in bilateral upper and lower extremities proximal to distal. No sensory deficits. HEENT: Face is symmetric. Pupils are equal and reactive. Extraocular movements are intact. NECK: Supple. No JVD. No thyromegaly. No submental, submandibular, pre- /postauricular, occipital or supraclavicular lymphadenopathy. CHEST: Normal chest expansion. No Telemetry. LUNGS: Patient has crackles noted of bilateral lung bases on the posterior lung arvizu with mild expiratory wheezing noted as well ABDOMEN: Soft, nontender, and nondistended. There is no rebound, voluntary guarding, or rigidity. : Deferred. No Cano. EXTREMITIES: 1+ pitting edema of the bilateral lower extremity SKIN: No skin breakdown. Vital Sign (Last 24 Hours) 11/22/24 11/22/24 11/22/24 10:15 12:15 12:27 Temp 97.5 Pulse 64 Resp 24 B/P (MAP) 121/62 Pulse Ox 98 O2 Delivery Nasal Cannula O2 Flow Rate 2.0 FiO2 21 LABS: Laboratory: Test 11/22/24 10:25 11/22/24 10:20 Range/Units White Blood Count 11.6 H 4.8-10.8 K/uL Red Blood Count 4.13 L 4.50-6.20 MIL/uL Hemoglobin 13.3 L 14.0-18.0 g/dL Hematocrit 40.0 L 42-54 % Mean Corpuscular Volume 96.9 79-99 fL Mean Corpuscular Hemoglobin 32.2 27.0-33.0 pg Mean Corpuscular Hemoglobin Concent 33.3 32.0-36.0 g/dL Red Cell Distribution Width 12.4 11.0-15.5 % Platelet Count 253 130-400 K/uL Mean Platelet Volume 8.8 7.5-10.5 fL Immature Granulocyte % (Auto) 0.7 0-1 % Neutrophils (%) (Auto) 74.3 40.0-77.0 % Lymphocytes (%) (Auto) 6.9 L 21.0-51.0 % Monocytes (%) (Auto) 10.0 3.0-13.0 % Eosinophils (%) (Auto) 7.7 0.0-8.0 % Basophils (%) (Auto) 0.4 0.0-5.0 % Neutrophils # (Auto) 8.6 H 1.8-7.7 K/uL Lymphocytes # (Auto) 0.8 L 1.0-4.8 K/uL Monocytes # (Auto) 1.2 H 0.1-1.0 K/uL Eosinophils # (Auto) 0.89 H 0.00-0.70 K/uL Basophils # (Auto) 0.05 0.00-0.20 K/uL Absolute Immature Granulocyte (auto 0.08 0-1 K/uL Nucleated Red Blood Cells 0.0 0.0-0.19 % White Cell Morphology Comment See comments Sodium Level 130 L 136-145 mmol/L Potassium Level 4.4 3.5-5.1 mmol/L Chloride Level 91 L 101-111 mmol/L Carbon Dioxide Level 32 21-32 mmol/L Blood Urea Nitrogen 14 7-18 mg/dL Creatinine 0.9 0.5-1.3 mg/dL Glomerular Filtration Rate Calc 86 >90 mL/min Random Glucose 97 70-105 mg/dL Total Calcium 9.1 8.5-10.1 mg/dL Magnesium Level 1.90 1.80-2.40 mg/dL Troponin I High Sensitivity 20 4-75 ng/L B-Type Natriuretic Peptide 321 H 0-100 pg/mL SARS-CoV-2 Antigen (Rapid) PRESUMPTIVE NEGATIVE NEGATIVE Influenza Type A Antigen Negative For Type A NEGATIVE Influenza Type B Antigen Negative For Type B NEGATIVE Group A Streptococcus Rapid negative NEGATIVE Current Medications Medications (Trade) Dose Ordered Sig/Hernandez Route PRN Reason Start Time Stop Time Status Last Admin Dose Admin Acetaminophen (TYLenol 500MG TAB) 500 mg Q6H PRN PO MILD PAIN (1-3) 11/22/24 13:00 12/22/24 12:59 Amlodipine Besylate (NorvASC 5MG TAB) 10 mg DAILY PO 11/23/24 09:00 12/23/24 08:59 Apixaban (EliquIS) 5 mg BID PO 11/22/24 21:00 12/22/24 20:59 Ascorbic Acid (Vitamin C 500mg Tab) 500 mg DAILY PO 11/23/24 09:00 12/23/24 08:59 Atorvastatin Calcium (LIPItor 20MG) 20 mg HS PO 11/22/24 21:00 12/22/24 20:59 Azithromycin 250 ml @ 250 mls/hr ONCE STAT IVPB 11/22/24 11:47 11/22/24 12:54 DC 11/22/24 12:54 250 MLS/HR Budesonide (Pulmicort 0.5 Mg/2ml) 0.5 mg Q12H IH 11/22/24 12:30 12/22/24 12:29 Carvedilol (Coreg 25MG) 25 mg BID PO 11/22/24 21:00 12/22/24 20:59 Cetirizine HCl (ZYRtec 5 MG TABLET) 10 mg DAILY PO 11/23/24 09:00 12/23/24 08:59 Docusate Sodium (COLace 100MG CAP) 100 mg BID PO 11/22/24 21:00 12/22/24 20:59 Home Med (Home Medication) (Multivit-Min/ FA/Lycopen/ Lutein (... DAILY PO 11/23/24 09:00 12/23/24 08:59 Insulin Human Regular (humuLIN R 100 UNIT/ML 3ML) INSULIN SLIDING SCAL... ACHS SQ 11/22/24 16:30 12/22/24 16:29 Ipratropium [place] (AtrovENT UD) 0.5 mg [id number] IH 11/22/24 18:00 12/22/24 17:59 Levofloxacin/ Dextrose (LEvaquIN 750 MG/ D5W 150 ML) 750 mg DAILY IV 11/23/24 09:00 12/03/24 08:59 Losartan Potassium (CozAAR 25MG TAB) 25 mg BID PO 11/22/24 21:00 12/22/24 20:59 Losartan Potassium (CozAAR 50 mg TAB) 50 mg BID PO 11/22/24 21:00 12/22/24 20:59 Magnesium Sulfate 50 ml @ 0 mls/hr PROTOCOL IV 11/22/24 12:30 12/22/24 12:29 Methylprednisolone Sodium Succinate (Solu-medROL 40MG) 40 mg Q8H IVP 11/22/24 13:00 12/22/24 12:59 Miscellaneous Medication (Olodaterol HCl (Striverdi Respimat)) 2 puff AD PRN IH SHORTNESS OF BREATH 11/22/24 13:00 11/22/24 12:54 DC Pantoprazole Sodium (PROTonix 40MG TAB) 40 mg DAILY PO 11/23/24 09:00 12/23/24 08:59 Potassium Chloride 100 ml @ 100 mls/hr AD PRN IV POTASSIUM PROTOCOL 11/22/24 12:30 12/22/24 12:29 Potassium Chloride (K-Dur/Klor-Con 20meq) 20 meq AD PRN PO POTASSIUM PROTOCOL 11/22/24 12:30 12/22/24 12:29 Potassium Chloride (KCl 10% Elixir 20meq/15ml) 20 meq AD PRN PO POTASSIUM PROTOCOL 11/22/24 12:30 12/22/24 12:29 Sennosides (Senna) 1 tab DAILY PRN PO CONSTIPATION 11/22/24 13:00 12/22/24 12:59 Tamsulosin HCl (FloMAX) 0.4 mg AM PO 11/23/24 09:00 12/23/24 08:59 DIAGNOSTICS / RADIOLOGY: SERVICE 1006 REASON: SOB/HISTORY OF PACEMAKER ORDERING PHYSICIAN: BONI ARREOLA NP PROCEDURE: CXR1VW - CHEST 1VW CHEST 1VW HISTORY: Shortness of breath COMPARISON: 10/05/2020 FINDINGS: A frontal projection of the chest was obtained. Mild bilateral pulmonary infiltrates are seen may be related to mild pulmonary vascular congestion with possible superimposed pneumonitis. The heart is borderline enlarged. Pacemaker is seen entering from the left. Degenerative changes are seen. No evidence of aortic calcification is seen. IMPRESSION: 1. Mild bilateral pulmonary infiltrates are seen may be related to mild pulmonary vascular congestion with possible superimposed pneumonitis. DICTATED BY: AR SEALS MD DATE: 11/22/24 1047 ELECTRONICALLY SIGNED BY: AR SEALS MD DATE: 11/22/24 1051 ASSESSMENT: Acute COPD exacerbation, POA Acute Systolic and Diastolic heart failure exacerbation, POA Acute Hypoxemic respiratory failure, POA Underlying history of COPD, POA Underlying history of cardiomyopathy with LVEF 35-40% from 2D echocardiogram from 2019, POA History severe allergy to penicillin, POA Underlying history of atrial fibrillation, POA History of chronic anticoagulation with Eliquis, POA Hypertension, POA Hyperlipidemia, POA History of BPH, POA Hyponatremia, POA GERD, POA PLAN: Patient will be admitted to cardiac telemetry floor Patient is presenting with one week history of dyspnea on exertion especially with exertional activities with cough and mild wheezing. Patient has a underlying history of COPD and cardiomyopathy. Patient received high-dose of IV Lasix 80 mg in the ER and reports having significant urinary output. We will start patient on IV steroids with Solu-Medrol 40 mg q.8 hours, as well as IV Meropenem/ Doxycycline, as IV Levaquin is currently not available in pharmacy, and Atrovent nebulizer q.6 hours We will obtain respiratory culture Obtain 2D echocardiogram to assess LV EF We will dose Lasix accordingly based on urine output in the ER, patient is Lasix naive, we will start Lasix 20 mg q.12 hour later tonight Maintain K greater than four and magnesium greater than two Patient to continue with home dose of carvedilol 25 mg b.i.d. and losartan 75 mg b.i.d. for management of underlying hypertension and history of cardiomyopathy Continue with omeprazole 20 mg b.i.d. We will request consultation with pulmonology We will obtain a CT chest without contrast to rule out any developing pneumonia All labs will be repeated in the morning including CBC, CMP, magnesium Patient to continue with Eliquis for history of atrial fibrillation Anticipate hospitalization for 48-72 hours Date of service: 11/22/2024 Plan of care was discussed with patient and at bedside, Jairo Sweeney MD Advanced Care Planning: Which of the following were discussed: Hospice care: Yes __ No _X_ Therapeutic options: Yes _X_ No __ Advance directives: Yes _X_ No __ Other discussions: Discussed with who?: Patient Voluntary nature of this service was explained to the patient? Yes _x_ No __ Amount of time spent: 20 minutes JAIRO SWEENEY MD Nov 22, 2024 13:24
[2024-11-22 13:30] LABS: THYROID STIMULATING HORMONE 4.13 uIU/mL (0.36-3.74)
--- NOTE | 2024-11-22 14:03 | HMCIMG ---
CT CHEST W/O CONTRAST HISTORY: No additional history given. COMPARISON: None TECHNIQUE: Multiple sequential axial images of the chest were obtained from the thoracic inlet through upper abdomen. Patient was not given contrast through intravenous route. FINDINGS: Pleural plaques calcifications are seen. There are interstitial fibrosis. Minimal right lower lung infiltrates are seen. There is no evidence of pulmonary nodule . Tiny bilateral pleural effusions are seen. There is no evidence of pneumothorax. There are normal size mediastinal and hilar lymph nodes. The heart is not enlarged. Degenerative changes of the thoracolumbar spine are present. There is no evidence of adrenal nodule. IMPRESSION: 1. Pleural plaques calcifications are seen. There are interstitial fibrosis. Minimal right lower lung infiltrates are seen. CT was performed with one or more following dose reduction techniques: automated exposure control, adjustment of the mA and kv according to patient's size, or use of a iterative reconstruction technique.
[2024-11-22] MEDS: Solu-medROL 40MG VIAL IVP SCH (14:22)
[2024-11-22] MEDS: INSULIN humuLIN R 100 UNIT/ML 3ML SQ SCH (16:30)
--- NOTE | 2024-11-22 17:04 | HMCSR ---
APPROVED REPORT EXAM: Two-dimensional and M-mode echocardiogram with Doppler and color Doppler. INDICATION ICD: Heart Failure 2D Dimensions RVDd4.0 cmLVEF(%)52.3 (>50%)LVED Vol(simp.)123.0 mL IVSd1.1 (0.7-1.1cm)FS(%)27 %LVES Vol(simp.)66.6 mL LVDd4.5 (3.8-5.6cm)LA (2D)3.5 (1.6-4.0cm)LVEF(%, simp.)46 % PWd1.1 (0.7-1.1cm)Ao Root(2D)2.8 (2.0-3.7cm)LA ESV INDEX (4CH)34.10 mL/m2 IVSs1.6 cmLVOT diam2.5 (1.8-2.4cm)LA ESV INDEX (2CH)47.80 mL/m2 LVDs3.3 (2.5-4.0cm)LA ESV INDEX (BP)38.60 mL/m2 PWs1.5 cm M-Mode Dimensions EPSS0.9 cm LA (MM)3.6 (1.6-4.0cm) Ao Root(MM)3.6 (2.0-3.7cm) Aortic Valve AoV VTI0.3 mAo Mean GR3.0 mmHgLVOT VTI0.24 m BENSON (VMAX)4.3 cm2AVA (VTI) 4.3 cm2 Mitral Valve MV E Vmax84.4 cm/sDECEL Jrag451 ms MV A Vmax88.3 cm/sP 1/2 T104 ms E/A ratio1.0MVA (PHT)2.1 cm2 TDI E/E' Lktbmu08.6E/E' Mxozcen34.2 Medial E' Peak V5.40 cm/sLateral E' Peak V6.90 cm/s Left Ventricle Left ventricular cavity size is normal. Regional wall motion abnormality is not clearly defined due t o poor subendocardial definition Moderate global hypokinesis present There is normal left ventricular wall thickness. LVEF is 30-35%. Stage II diastolic dysfunction. Right Ventricle The right ventricle is normal size. The right ventricular systolic function is normal. Atria The left atrium size is normal. The right atrium size is normal. Aortic Valve The aortic valve is normal in structure and function. No aortic regurgitation is present. There is no aortic valvular stenosis. Mitral Valve The mitral valve is normal in structure and function. There is no mitral valve regurgitation noted. T here is no mitral valve stenosis. Tricuspid Valve The tricuspid valve is normal in structure and function. There is trivial tricuspid valve regurgitati on noted. Pulmonic Valve The pulmonary valve is normal in structure and function. There is no pulmonic valvular regurgitation. Great Vessels The aortic root is normal in size. The IVC is normal in size and collapses >50% with inspiration. Pericardium No pericardial effusion. Other Information Technically limited study due to body habitus.COPD. Conclusion LVEF is 30-35%. Regional wall motion abnormality is not clearly defined due to poor subendocardial definition Moderate global hypokinesis present Stage II diastolic dysfunction. The aortic root is normal in size. No pericardial effusion.
[2024-11-22] MEDS ORDERED: MEROPENEM 1 GM in 0.9%NACL 100ML 100 ML IVPB SCH (18:30)
[2024-11-22 18:42] LABS: MAGNESIUM 1.9 mg/dL (1.80-2.40); POTASSIUM 4.3 mmol/L (3.5-5.1)
[2024-11-22] MEDS: BUDESONIDE 0.5 MG/2 ML INH IH SCH (19:27)
[2024-11-22] MEDS: IpraTROPium 0.5 MG/2.5 ML INH IH SCH (19:27)
[2024-11-22 19:29] VITALS: PULSE 83; RESP 20
[2024-11-22] MEDS: MEROPENEM 1 GM VIAL IVPB SCH (19:47)
--- NOTE | 2024-11-22 19:52 | NUR ---
PT ORIENTED TO ROOM AND CALL LLIGHT IN REACH
--- NOTE | 2024-11-22 19:52 | NUR ---
PT DENIES CHEST DISCOMFORT. STATES IT SOB " TRYING TO CATCH NMY BREATH" WHILE WALKING.
[2024-11-22] MEDS: furoSEMIDE 20MG VIAL IV SCH (20:25)
--- NOTE | 2024-11-22 20:28 | NUR ---
PT REORIENTED TO ROOM, CALL LIGHT WITHIN REACH
--- NOTE | 2024-11-22 20:52 | NUR ---
BEDSIDE GLUCOSE 215
[2024-11-22] MEDS: atorVAStatin 20 MG TABLET PO SCH (20:55)
[2024-11-22] MEDS: doCUSate SODIUM 100 MG CAP PO SCH (20:55)
[2024-11-22] MEDS: LoSARTan 50 MG TABLET PO SCH (20:55)
[2024-11-22] MEDS: LoSARTan 25 MG TABLET PO SCH (20:55)
[2024-11-22] MEDS: carVEDIlol 25 MG TABLET PO SCH (20:56)
[2024-11-22] MEDS: APIXaban 5 MG TABLET PO SCH (20:56)
--- NOTE | 2024-11-22 20:56 | CONS ---
[facility] CONSULTATION NOTE Date Patient Seen: Nov 22, 2024 Time of Visit: 20:56 Supervising Physician: Dr. Laurie Perdomo Reason for Consultation: Acute hypoxic respiratory failure Consulting Physician: Dr Sweeney Outpatient Specialists: [ ] Inpatient Consults: Cardiology PROBLEM LIST: Acute hypoxic respiratory failure, POA Interstitial lung disease, POA Congestive heart failure, EF of 30 35% seen on 2D echo, POA Stage II diastolic dysfunction, POA Atrial fibrillation, rate controlled, POA Hypertension, POA COPD, underwent pulmonary function test three years ago PLAN: Admit per primary Continue O2 therapy DuoNeb q.6 as needed for shortness of breaths PT/OT eval and treat Continue cardiac monitoring BiPAP at night as needed Incentive spirometry Aspiration precautions HPI: 79-year-old male with past medical history of hypertension, atrial fibrillation, as s/p pacemaker, COPD, remote history of smoking, and alcoholism who presented to ED via EMS with complaint of worsening shortness of breaths and found to have possible CHF in acute exacerbation/COPD in acute exacerbation. Apparently patient has been having issues with shortness of breaths for the past week aggravated by exertion. There is no associated fever, chest pain, cough, or flu-like symptoms. Apparently patient underwent pulmonary function tests couple years ago, and at that time he was informed that he has new onset COPD. At that time patient was prescribed with albuterol which he uses occasionally. He then decided to come to ED for further medical evaluation since he is not getting any relief from albuterol inhaler. In ED patient was found to have audible wheezing, with increased work of breathing, patient was subsequently placed on O2 therapy and was given neb treatment. His initial CBC showed WBC of 11.6, his chemistry is notable for sodium level 131, initial troponin of 20, and BNP of 321, chest x-ray was also done and showed bilateral pulmonary infiltrates with superimposed pneumonitis. Stat 2D echo was also done showed EF of 30-35% with stage II diastolic dysfunction. COVID and flu tests were also negative. [facility] pulmonology is consulted for evaluation of acute respiratory failure, COPD exacerbation. Cardiology was also consulted. At present patient is currently hemodynamically stable, GCS 15, on2 L of oxygen appropriate oxygen saturation, no audible wheezing on auscultation, no noticeable signs of respiratory distress or restriction. Patient denies any headache, chest pain, fever, abdominal pain, difficulty urinating, or flu-like symptoms. Patient has history of remote smoking, usually consumes one glass of wine per day and occasional whiskey. Patient is also vaccinated against COVID virus and his flu shot is up-to-date PAST MEDICAL HX: see above PAST SURGICAL HX: noncontributory SOCIAL HISTORY: See HPI Coded Allergies: Penicillins (Unverified Allergy, Intermediate, 02/17/20) penicillin G (Unverified Allergy, Unknown, 08/10/20) REVIEW OF SYSTEMS: 12 point ROS reviewed with patient. Pertinent positives mentioned above. Otherwise negative. PHYSICAL EXAM: GENERAL: alert, weak, awake oriented x 3 HEENT: EOMI, Sclera non icteric, moist mucosa NECK: Supple, no JVD, trachea midline LUNGS: Clear breath sounds bilaterally. No wheezes HEART: Regular rate and rhythm. Normal S1 and S2, without murmurs ABD: Abdomen soft, nontender. Bowel sounds present EXT: No clubbing cyanosis or edema NEURO: Alert and oriented to person, follows commands Vital Signs (last 8hr) Date Time Temp Pulse Resp B/P (MAP) Pulse Ox O2 Delivery O2 Flow Rate FiO2 11/22/24 20:27 97.9 84 18 150/69 94 Nasal Cannula* 2.0 N/A 11/22/24 19:50 97.9 80 18 136/62 95 Nasal Cannula* 2 28 11/22/24 19:29 83 20 11/22/24 18:11 81 16 164/89 98 Room Air* 0 21 11/22/24 17:11 68 16 154/80 98 Room Air* 0 11/22/24 16:15 68 16 156/74 98 Room Air* 0 11/22/24 15:15 66 16 126/64 98 Room Air* 0 11/22/24 14:32 65 16 131/72 98 Room Air* 0 21 LABS: Hematology Labs: Test 11/22/24 10:25 Range/Units White Blood Count 11.6 H 4.8-10.8 K/uL Red Blood Count 4.13 L 4.50-6.20 MIL/uL Hemoglobin 13.3 L 14.0-18.0 g/dL Hematocrit 40.0 L 42-54 % Mean Corpuscular Volume 96.9 79-99 fL Mean Corpuscular Hemoglobin 32.2 27.0-33.0 pg Mean Corpuscular Hemoglobin Concent 33.3 32.0-36.0 g/dL Red Cell Distribution Width 12.4 11.0-15.5 % Platelet Count 253 130-400 K/uL Mean Platelet Volume 8.8 7.5-10.5 fL Immature Granulocyte % (Auto) 0.7 0-1 % Neutrophils (%) (Auto) 74.3 40.0-77.0 % Lymphocytes (%) (Auto) 6.9 L 21.0-51.0 % Monocytes (%) (Auto) 10.0 3.0-13.0 % Eosinophils (%) (Auto) 7.7 0.0-8.0 % Basophils (%) (Auto) 0.4 0.0-5.0 % Neutrophils # (Auto) 8.6 H 1.8-7.7 K/uL Lymphocytes # (Auto) 0.8 L 1.0-4.8 K/uL Monocytes # (Auto) 1.2 H 0.1-1.0 K/uL Eosinophils # (Auto) 0.89 H 0.00-0.70 K/uL Basophils # (Auto) 0.05 0.00-0.20 K/uL Absolute Immature Granulocyte (auto 0.08 0-1 K/uL Nucleated Red Blood Cells 0.0 0.0-0.19 % White Cell Morphology Comment See comments Erythrocyte Sedimentation Rate 45 H 0-20 MM/HR Chemistry Labs: Test 11/22/24 20:48 11/22/24 18:30 11/22/24 10:25 Range/Units Whole Blood Glucose 219 #H 70-110 MG/DL Sodium Level 131 L 136-145 mmol/L Potassium Level 4.3 3.5-5.1 mmol/L Chloride Level 92 L 101-111 mmol/L Carbon Dioxide Level 32 21-32 mmol/L Blood Urea Nitrogen 15 7-18 mg/dL Creatinine 1.0 0.5-1.3 mg/dL Glomerular Filtration Rate Calc 76 >90 mL/min Random Glucose 124 H 70-105 mg/dL Total Calcium 9.1 8.5-10.1 mg/dL Magnesium Level 1.90 1.80-2.40 mg/dL Hemoglobin A1c 6.0 4.0-6.0 % Estimated Average Glucose (eAG) 126 70-126 mg/dL Troponin I High Sensitivity 20 4-75 ng/L C-Reactive Protein, Quantitative 104.70 H 0.5-3.0 mg/L B-Type Natriuretic Peptide 321 H 0-100 pg/mL Procalcitonin < 0.05 L 0.05-0.5 ng/mL Thyroid Stimulating Hormone (TSH) 4.13 #H 0.36-3.74 uIU/mL Coagulation Labs: Test 11/22/24 10:25 Range/Units Prothrombin Time 11.8 H 9.6-11.6 SEC Prothromb Time International Ratio 1.06 0.85-1.15 Activated Partial Thromboplast Time 31.3 26.3-35.5 SEC DIAGNOSTICS / RADIOLOGY RESULTS: CT CHEST W/O CONTRAST HISTORY: No additional history given. COMPARISON: None TECHNIQUE: Multiple sequential axial images of the chest were obtained from the thoracic inlet through upper abdomen. Patient was not given contrast through intravenous route. FINDINGS: Pleural plaques calcifications are seen. There are interstitial fibrosis. Minimal right lower lung infiltrates are seen. There is no evidence of pulmonary nodule . Tiny bilateral pleural effusions are seen. There is no evidence of pneumothorax. There are normal size mediastinal and hilar lymph nodes. The heart is not enlarged. Degenerative changes of the thoracolumbar spine are present. There is no evidence of adrenal nodule. IMPRESSION: 1. Pleural plaques calcifications are seen. There are interstitial fibrosis. Minimal right lower lung infiltrates are seen. CHEST 1VW HISTORY: Shortness of breath COMPARISON: 10/05/2020 FINDINGS: A frontal projection of the chest was obtained. Mild bilateral pulmonary infiltrates are seen may be related to mild pulmonary vascular congestion with possible superimposed pneumonitis. The heart is borderline enlarged. Pacemaker is seen entering from the left. Degenerative changes are seen. No evidence of aortic calcification is seen. IMPRESSION: 1. Mild bilateral pulmonary infiltrates are seen may be related to mild pulmonary vascular congestion with possible superimposed pneumonitis. PLAN NEURO: Minimize central acting medications as possible. Maintain fall precautions, adequate lighting during the day PULMONARY: Supplemental 02 as needed. Maintain aspiration precautions at all times CARDIOVASCULAR: Follow hemodynamics. Vital signs per facility protocol GI & NUTRITION: Continue with nutritional support. Continue stool softeners and laxatives as needed. KIDNEYS & ELECTROLYTES: Strict monitoring of intake, output and overall fluid balance. Avoid nephrotoxic medications to the extent possible. Medications to be dosed according to renal function. Monitor electrolytes and replace as needed ENDOCRINE: Maintain blood glucose between 100-180 at all times. Hypoglycemia protocol in place INFECTIOUS DISEASE: Trend temperature, WBC and procalcitonin level Follow cultures, deescalate antibiotics as soon as possible. Panculture if new onset fever ONCOLOGY/HEMATOLOGY/COAGULATION: Monitor for s/s of bleeding Monitor hemoglobin, coagulation studies as needed SKIN: Pressure ulcer prevention per facility protocol Specialty mattress ORTHO/REHAB: Continue PT/OT Prophylaxis: Continue GI and DVT prophylaxis Code Status: Full Resuscitation Disposition: TBD Other: Total patient care time exceeds 35 minutes excluding all procedures. Supervising physician: CATARINA Stock VISITING HOUSEKEEPER Nov 22, 2024 20:56
--- NOTE | 2024-11-22 20:59 | NUR ---
PT REFUSED INSULIN, STATES HE IS NOT DM
--- NOTE | 2024-11-22 21:46 | NUR ---
CALLED STEVEN TO [phone], PER BETHANY SHE IS WITH A PT . WILL RETURN CALL
[2024-11-22 22:10] VITALS: BP 134/63; PULSE 80; RESP 20; TEMP 98.3
[2024-11-22 22:51] VITALS: O2SAT 90
--- NOTE | 2024-11-22 23:30 | NUR ---
ADMISSION Patient admitted from ER, report given by nurse Ashlee. Vitals stable. 2 liters nasal cannula. Denies shortness of breath. Denies chest pain. States he feels shortness of breath with exertion. Hearing aids at bedside. Urinal provided for strict intake and output. Telemetry placed, Sinus Rhythm 85. Educated on use of call light and fall precautions, verbalized understanding. Call light within reach. Bed in low position.
[2024-11-23] VITALS (14 sets, daily range): BP systolic 114–136; BP diastolic 50–83; PULSE 70–91; RESP 18–20; TEMP 97.9–98.8; O2SAT 91–94
[2024-11-23 05:39] LABS: BASOPHILS # (AUTO) 0.02 K/uL (0.00-0.20); BASOPHILS % (AUTO) 0.2 % (0.0-5.0); EOSINOPHILS # (AUTO) 0.02 K/uL (0.00-0.70); EOSINOPHILS % (AUTO) 0.2 % (0.0-8.0); HEMATOCRIT 38.5 % (42-54); IMMATURE GRANULOCYTE ABSOLUTE 0.09 K/uL (0-1); LYMPHOCYTES # (AUTO) 0.9 K/uL (1.0-4.8); LYMPHOCYTES % (AUTO) 8.4 % (21.0-51.0); MONOCYTES # (AUTO) 0.5 K/uL (0.1-1.0); MONOCYTES % (AUTO) 4.4 % (3.0-13.0); NEUTROPHILS # (AUTO) 8.8 K/uL (1.8-7.7); NEUTROPHILS % (AUTO) 85.9 % (40.0-77.0); PLATELET COUNT (AUTO) 254 K/uL (130-400); RED BLOOD CELL COUNT(AUTO) 3.97 MIL/uL (4.50-6.20); RED CELL DISTRIBUTION WIDTH 11.9 % (11.0-15.5); WHITE BLOOD COUNT (AUTO) 10.3 K/uL (4.8-10.8)
[2024-11-23 06:11] LABS: ALBUMIN 2.8 g/dL (3.5-5.0); BILIRUBIN,TOTAL 0.5 mg/dL (0.2-1.0); CREATININE 1.1 mg/dL (0.5-1.3); MAGNESIUM 2.1 mg/dL (1.80-2.40); POTASSIUM 4.7 mmol/L (3.5-5.1); TOTAL PROTEIN, SERUM 6.7 g/dL (6.0-8.3)
[2024-11-23] MEDS: [UNRECOGNIZED DRUG - OTHER] PO SCH (09:00)
[2024-11-23] MEDS ORDERED: levoFLOXacin 750 MG/D5W 150ML BAG IV SCH (09:00)
[2024-11-23] MEDS: LUTEIN PO SCH (09:00)
[2024-11-23] MEDS: MULTIVIT MIN PO SCH (09:00)
[2024-11-23] MEDS: LYCOPEN PO SCH (09:00)
[2024-11-23] MEDS: ceTIRIzine HCL 5 MG TABLET PO SCH (09:45)
[2024-11-23] MEDS: DOXYCYCLINE HYCLATE 100 MG TABLET PO SCH (09:45)
[2024-11-23] MEDS: tamSULOsin HCL 0.4 MG CAP.ER.24H PO SCH (09:45)
[2024-11-23] MEDS: amLODIPine 5 MG TAB PO SCH (09:47)
[2024-11-23] MEDS: PANTOPrazole 40 MG TAB DR PO SCH (09:47)
[2024-11-23] MEDS: ASCORBIC ACID 500 MG TAB PO SCH (09:47)
[2024-11-23 10:13] LABS: ABG BASE EXCESS 3.8 mmol/L (-2.0-3.0); ABG HCO3 29.7 mmol/L (21.0-28.0); ABG OXYGEN SATURATION 93.8 % (94.0-98.0); ABG PCO2 49 mmHg (35-48); ABG PH 7.398 (7.350-7.450); PO2, ARTERIAL BG 69.7 mmHg (83.0-108.0); VENT MODE, BG NC (ROOM AIR)
--- NOTE | 2024-11-23 12:09 | PN ---
[facility] PROGRESS NOTE Date Patient Seen: Nov 23, 2024 Time of Visit: 12:09 Supervising Physician: Dr. Krystle Paris Consulting Physician: Dr. 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 AAOX3. Currently on 02@2LPM via DC.States he feels better overall. Denies any chest pain, abdominal pain, nausea or vomiting. No family at bedside. REVIEW OF SYSTEMS: 12 point ROS reviewed with patient. Pertinent positives mentioned above. Otherwise negative. PHYSICAL EXAM: GENERAL: alert, weak, awake oriented x 3 HEENT: EOMI, Sclera non icteric, moist mucosa NECK: Supple, no JVD, trachea midline LUNGS: Clear breath sounds bilaterally. No wheezes HEART: Regular rate and rhythm. Normal S1 and S2, without murmurs ABD: Abdomen soft, nontender. Bowel sounds present EXT: No clubbing cyanosis or edema NEURO: AAOx3, follows commands Vital Signs (last 8hr) Date Time Temp Pulse Resp B/P (MAP) Pulse Ox O2 Delivery O2 Flow Rate FiO2 11/23/24 11:14 74 18 N/Cannula Low lpm 2.0 28 11/23/24 11:12 74 20 11/23/24 09:46 129/70 11/23/24 08:00 98.8 75 18 129/70 91 Nasal Cannula 2.0 24 11/23/24 06:29 82 18 N/Cannula Low lpm 3.0 32 11/23/24 06:28 72 20 LABS: Hematology Labs: Test 11/23/24 05:22 11/22/24 10:25 Range/Units White Blood Count 10.3 4.8-10.8 K/uL Red Blood Count 3.97 L 4.50-6.20 MIL/uL Hemoglobin 12.7 L 14.0-18.0 g/dL Hematocrit 38.5 L 42-54 % Mean Corpuscular Volume 97.0 79-99 fL Mean Corpuscular Hemoglobin 32.0 27.0-33.0 pg Mean Corpuscular Hemoglobin Concent 33.0 32.0-36.0 g/dL Red Cell Distribution Width 11.9 11.0-15.5 % Platelet Count 254 130-400 K/uL Mean Platelet Volume 8.8 7.5-10.5 fL Immature Granulocyte % (Auto) 0.9 0-1 % Neutrophils (%) (Auto) 85.9 H 40.0-77.0 % Lymphocytes (%) (Auto) 8.4 L 21.0-51.0 % Monocytes (%) (Auto) 4.4 3.0-13.0 % Eosinophils (%) (Auto) 0.2 0.0-8.0 % Basophils (%) (Auto) 0.2 0.0-5.0 % Neutrophils # (Auto) 8.8 H 1.8-7.7 K/uL Lymphocytes # (Auto) 0.9 L 1.0-4.8 K/uL Monocytes # (Auto) 0.5 0.1-1.0 K/uL Eosinophils # (Auto) 0.02 0.00-0.70 K/uL Basophils # (Auto) 0.02 0.00-0.20 K/uL Absolute Immature Granulocyte (auto 0.09 0-1 K/uL Nucleated Red Blood Cells 0.0 0.0-0.19 % White Cell Morphology Comment See comments Erythrocyte Sedimentation Rate 45 H 0-20 MM/HR Chemistry Labs: Test 11/23/24 11:11 11/23/24 05:22 11/22/24 10:25 Range/Units Whole Blood Glucose 147 H 70-110 MG/DL Bedside Glucose Comment Notified Nurse Sodium Level 134 L 136-145 mmol/L Potassium Level 4.7 3.5-5.1 mmol/L Chloride Level 98 L 101-111 mmol/L Carbon Dioxide Level 32 21-32 mmol/L Blood Urea Nitrogen 23 H 7-18 mg/dL Creatinine 1.1 0.5-1.3 mg/dL Glomerular Filtration Rate Calc 67 >90 mL/min Random Glucose 141 H 70-105 mg/dL Total Calcium 8.8 8.5-10.1 mg/dL Magnesium Level 2.10 1.80-2.40 mg/dL Total Bilirubin 0.5 0.2-1.0 mg/dL Aspartate Amino Transf (AST/SGOT) 12 10-37 U/L Alanine Aminotransferase (ALT/SGPT) 26 12-78 U/L Alkaline Phosphatase 71 50-136 U/L Total Protein 6.7 6.0-8.3 g/dL Albumin 2.8 L 3.5-5.0 g/dL Hemoglobin A1c 6.0 4.0-6.0 % Estimated Average Glucose (eAG) 126 70-126 mg/dL Troponin I High Sensitivity 20 4-75 ng/L C-Reactive Protein, Quantitative 104.70 H 0.5-3.0 mg/L B-Type Natriuretic Peptide 321 H 0-100 pg/mL Procalcitonin < 0.05 L 0.05-0.5 ng/mL Thyroid Stimulating Hormone (TSH) 4.13 #H 0.36-3.74 uIU/mL Coagulation Labs: Test 11/22/24 10:25 Range/Units Prothrombin Time 11.8 H 9.6-11.6 SEC Prothromb Time International Ratio 1.06 0.85-1.15 Activated Partial Thromboplast Time 31.3 26.3-35.5 SEC DIAGNOSTICS / RADIOLOGY RESULTS: ORDERING PHYSICIAN: CHELA CANNON MD PROCEDURE: CHEST WO - CT CHEST W/O CONTRAST CT CHEST W/O CONTRAST HISTORY: No additional history given. COMPARISON: None TECHNIQUE: Multiple sequential axial images of the chest were obtained from the thoracic inlet through upper abdomen. Patient was not given contrast through intravenous route. FINDINGS: Pleural plaques calcifications are seen. There are interstitial fibrosis. Minimal right lower lung infiltrates are seen. There is no evidence of pulmonary nodule . Tiny bilateral pleural effusions are seen. There is no evidence of pneumothorax. There are normal size mediastinal and hilar lymph nodes. The heart is not enlarged. Degenerative changes of the thoracolumbar spine are present. There is no evidence of adrenal nodule. IMPRESSION: 1. Pleural plaques calcifications are seen. There are interstitial fibrosis. Minimal right lower lung infiltrates are seen. Disposition: Per primary team LOWELL MARTINEZ Nov 23, 2024 12:09
[2024-11-23] MEDS: levoFLOXacin 500 MG TABLET PO SCH (12:39)
--- NOTE | 2024-11-23 12:57 | CONS ---
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 Patient states his symptoms have been progressive over the past 7 days and exacerbated with the exertion, as per patient becomes short of breath ambulating from his bed to the bathroom. Also the patient is noticing mild non productive cough. On initial assessment the patient was noted to be saturating in 92% requiring supplemental oxygen in no acute distress stating he feels near his baseline. Presenting chest x-ray showed bilateral infiltrates. And CTA of the chest with interstitial fibrosis is noted with no pulmonary edema or significant effusions. 2D echocardiogram on this admission revealed an EF of 30-35% ( relatively unchanged from prior from 2019 that was 35-40%). BNP was mildly elevated to 321 and Pt was started on IV lasix and Duonebs in the ER. Patient's current balance is net-2275 mL with a urine output of 2625 mL and appears euvolemic on exam. Presenting lab results with a creatinine of 0.9 that up trended to 1.1, and troponin is negative. At the moment of our assessment the patient states his shortness of breath has greatly improved, he denies any chest pain, palpitations or any other anginal equivalents at this time, review of telemetry at this time with a sinus rhythm currently at 83 beats per minute, on physical exam the patient appears to be euvolemic, no lower extremity edema or JVD noted. Cardiology was consulted for suspected CHF exacerbation ] Past Medical History: [Refer to chart ] Past Surgical History: [ Refer to HPI] Family History: [Refer to HPI ] Social History: [Refer to HPI ] Habits: [Never] smoker. [Denies] alcohol consumption. [Denies] illicit drug use Review of Systems: A review of12 point systems was negative set per HPI Physical Examination: GENERAL: [No acute distress.] HEAD: [Normal with no signs of head trauma.] EYES: [PERRLA, EOMI, conjunctiva and sclera normal.] ENT: [Hearing grossly intact, normal oropharynx.] NECK: [Supple without JVD. There is no tenderness, lymphadenopathy, or masses. No thyromegaly. Normal carotid upstrokes without bruits.] LUNGS: [Clear breath. No wheezes, or rhonchi.] HEART: [Normal rate and rhythm. Normal S1 and S2 without mumurs, gallop or rub.] VASC: [Peripheral pulses +2 bilaterally.] ABD: [Bowel sounds normal, soft, nontender, no masses, no organomegaly. No audible bruits.] : [Not examined] LYMPH: [No lymphadenopathy noted.] EXT: [No clubbing, cyanosis or edema.] SKIN: [No rashes or lesions noted.] NEURO: [Awake, alert, and oriented x3. No focal sensory or strength deficits noted.] Vital Signs (last 8hr) Date Time Temp Pulse Resp B/P (MAP) Pulse Ox O2 Delivery O2 Flow Rate FiO2 11/23/24 11:14 74 18 N/Cannula Low lpm 2.0 28 11/23/24 11:12 74 20 11/23/24 09:46 129/70 11/23/24 08:00 98.8 75 18 129/70 91 Nasal Cannula 2.0 24 11/23/24 06:29 82 18 N/Cannula Low lpm 3.0 32 11/23/24 06:28 72 20 Laboratory: [ ] Hematology Labs: Test 11/23/24 05:22 11/22/24 10:25 Range/Units White Blood Count 10.3 4.8-10.8 K/uL Red Blood Count 3.97 L 4.50-6.20 MIL/uL Hemoglobin 12.7 L 14.0-18.0 g/dL Hematocrit 38.5 L 42-54 % Mean Corpuscular Volume 97.0 79-99 fL Mean Corpuscular Hemoglobin 32.0 27.0-33.0 pg Mean Corpuscular Hemoglobin Concent 33.0 32.0-36.0 g/dL Red Cell Distribution Width 11.9 11.0-15.5 % Platelet Count 254 130-400 K/uL Mean Platelet Volume 8.8 7.5-10.5 fL Immature Granulocyte % (Auto) 0.9 0-1 % Neutrophils (%) (Auto) 85.9 H 40.0-77.0 % Lymphocytes (%) (Auto) 8.4 L 21.0-51.0 % Monocytes (%) (Auto) 4.4 3.0-13.0 % Eosinophils (%) (Auto) 0.2 0.0-8.0 % Basophils (%) (Auto) 0.2 0.0-5.0 % Neutrophils # (Auto) 8.8 H 1.8-7.7 K/uL Lymphocytes # (Auto) 0.9 L 1.0-4.8 K/uL Monocytes # (Auto) 0.5 0.1-1.0 K/uL Eosinophils # (Auto) 0.02 0.00-0.70 K/uL Basophils # (Auto) 0.02 0.00-0.20 K/uL Absolute Immature Granulocyte (auto 0.09 0-1 K/uL Nucleated Red Blood Cells 0.0 0.0-0.19 % White Cell Morphology Comment See comments Erythrocyte Sedimentation Rate 45 H 0-20 MM/HR Chemistry Labs: Test 11/23/24 11:11 11/23/24 05:22 11/22/24 10:25 Range/Units Whole Blood Glucose 147 H 70-110 MG/DL Bedside Glucose Comment Notified Nurse Sodium Level 134 L 136-145 mmol/L Potassium Level 4.7 3.5-5.1 mmol/L Chloride Level 98 L 101-111 mmol/L Carbon Dioxide Level 32 21-32 mmol/L Blood Urea Nitrogen 23 H 7-18 mg/dL Creatinine 1.1 0.5-1.3 mg/dL Glomerular Filtration Rate Calc 67 >90 mL/min Random Glucose 141 H 70-105 mg/dL Total Calcium 8.8 8.5-10.1 mg/dL Magnesium Level 2.10 1.80-2.40 mg/dL Total Bilirubin 0.5 0.2-1.0 mg/dL Aspartate Amino Transf (AST/SGOT) 12 10-37 U/L Alanine Aminotransferase (ALT/SGPT) 26 12-78 U/L Alkaline Phosphatase 71 50-136 U/L Total Protein 6.7 6.0-8.3 g/dL Albumin 2.8 L 3.5-5.0 g/dL Hemoglobin A1c 6.0 4.0-6.0 % Estimated Average Glucose (eAG) 126 70-126 mg/dL Troponin I High Sensitivity 20 4-75 ng/L C-Reactive Protein, Quantitative 104.70 H 0.5-3.0 mg/L B-Type Natriuretic Peptide 321 H 0-100 pg/mL Procalcitonin < 0.05 L 0.05-0.5 ng/mL Thyroid Stimulating Hormone (TSH) 4.13 #H 0.36-3.74 uIU/mL Coagulation Labs: Test 11/22/24 10:25 Range/Units Prothrombin Time 11.8 H 9.6-11.6 SEC Prothromb Time International Ratio 1.06 0.85-1.15 Activated Partial Thromboplast Time 31.3 26.3-35.5 SEC Diagnostics / Radiology: [Copy/Paste Echos/Imaging Report here] Assessment: [Paroxysmal atrial fibrillation Nonischemic cardiomyopathy (EF 30-35%) Hypertension Hyperlipidemia COPD Conduction system disease with a history of dual-chamber permanent pacemaker ] Plan: [# Nonischemic cardiomyopathy NYHA III, compensated an euvolemic on exam He underwent coronary angiogram in 2019 that showed patent coronaries Prior 2D echocardiogram from 2019 showed EF 35-40% The patient was endorsing seven day onset of progressive and ongoing shortness of breath His symptoms have resolved following Duonebs and IV lasix. Low suspicion for CHF exacerbation. His symptoms appear to be COPD related. Presenting lab results with a creatinine of 0.9 currently at 1.1 and a BNP of 321. troponin 20 The patient was started on IV Lasix. With the current net negative balance of 2275 mL, with a urine output of 2625 mL The patient underwent a chest CT that revealed interstitial fibrosis with no edema/effusions At this time the patient is endorsing significant improvement in his shortness of breath Repeat 2D echocardiogram with EF 30-35%, relatively unchanged from prior from 2019 Current telemetry shows sinus rhythm with a heart rate of 83 beats per minute On physical exam the patient appears to be euvolemic, with no lower extremity edema or JVD At this time there is no clinical evidence of heart failure We will transition to oral Lasix 40 mg daily Continue current antibiotic therapy and Duonebs Initiate his home medication carvedilol 25 mg every 12 hours, Eliquis 5 mg every 12 hours, losartan 25 mg every 12 hours, amlodipine 10 mg every 12 hours No indication for further CV testing at this time. Thank you for this consult cardiology will sign off at this time the patient will follow up with clinic one week after discharge ] ATTESTATION BY PHYSICIAN I have seen and examined the patient, reviewed the above documentation, participated in medical decision making, made necessary modifications, and agree with the treatment plan as documented by my mid-level provider above. MD LEVAR Iqbal JAMES R MD Nov 23, 2024 12:57
--- NOTE | 2024-11-23 14:33 | NUR ---
[facility] CM MET WITH PT THIS AFTERNOON ASSESSMENT DONE. PATIENT IS INDEPENDENT PRIOR TO ADMISSION, LIVE AT HOME WITH SPOUSE. PATIENT HAS A CANE AND BPM MACHINE. PT STATE THEY LIVE IN AN RV. DENIES ANY OTHER EQUIPMENT/SERVICES. FEELS SAFE TO GO BACK HOME, STILL DRIVE, SPOUSE ABLE TO ASSIST WITH TRANSPORTATION AND NEEDS NECESSARY. PT STATE HE ALSO HAS MCR A&B SECONDARY TO HIS [employer], BUT HE USES [facility] HIS PRIMARY INSURANCE. DCP HOME ONCE STABLE. CM TO CONTINUE TO FOLLOW UP. Addendum: 11/23/24 at 1435 by LIZZY HORVATH LVN CM Amended: Links added.
--- NOTE | 2024-11-23 17:37 | PN ---
[facility] PROGRESS NOTE Date of Service: Nov 23, 2024 Time of Service: 17:36 SUBJECTIVE: [ ] 11/23/24 Patient seen and examined. Care discussed with RN/Improved breathing with IV Lasix and will transitioned to po Lasix today. EF 35%( Unchanged from prior) REVIEW OF SYSTEMS CONSTITUTIONAL: Malaise, asthenia NEUROLOGICAL: Denies headache, amaurosis fugax, motor weakness, sensory deficit, vertigo/spinning sensation, gait abnormalities, or tremors. ENT: No hearing loss, otalgia, otorrhea, rhinitis, rhinorrhea, hoarseness, or sore throat. CARDIOVASCULAR: Denies any exertional angina, dyspnea on exertion, orthopnea, paroxysmal nocturnal dyspnea, palpitations, life-threatening arrhythmias, claudication. PULMONARY: Shortness of breath, dyspnea on exertion with mild wheezing, mild phlegmatic cough SLEEP: Denies morning headaches, daytime somnolence or napping. Denies diffic ulty falling asleep, staying asleep, waking from sleep. Denies knowledge of snoring. GASTROINTESTINAL: Denies any type of dysphagia to either liquids or solids. Denies nausea, vomiting, pyrosis, early satiety, abdominal pain, diarrhea, constipation, or changes in stool consistency or caliber. Denies coffee-ground emesis, hematemesis, hematochezia, or melanotic stools. GENITOURINARY: Denies frequency, urgency, nocturia, hematuria or incontinence (Storage/Irritative symptoms.) Low urinary stream, straining to void, urinary intermittency or hesitancy, splitting of the voiding stream, terminal dribbling. ENDOCRINOLOGIC: Denies polyuria, polydipsia, polyphagia or heat/cold into lerances. HEMATOLOGIC: Denies thrombophilia/previous clots, or coagulopathy/bleeding disorders. ONCOLOGIC: Denies personal history of malignancy. DERMATOLOGIC: Denies rashes or pruritus. PSYCHIATRIC: Denies any suicidal or homicidal ideation. Denies hallucinations. PHYSICAL EXAM GENERAL APPEARANCE: The patient is awake, alert, and oriented, sitting up in bed on 2 L of O2 supplementation NEUROLOGICAL: Cranial nerves II-XII grossly intact. Motor is 5/5 in bilateral upper and lower extremities proximal to distal. No sensory deficits. HEENT: Face is symmetric. Pupils are equal and reactive. Extraocular movements are intact. NECK: Supple. No JVD. No thyromegaly. No submental, submandibular, pre- /postauricular, occipital or supraclavicular lymphadenopathy. CHEST: Normal chest expansion. No Telemetry. LUNGS: Patient has crackles noted of bilateral lung bases on the posterior lung arvizu with mild expiratory wheezing noted as well ABDOMEN: Soft, nontender, and nondistended. There is no rebound, voluntary guarding, or rigidity. : Deferred. No Cano. EXTREMITIES: 1+ pitting edema of the bilateral lower extremity SKIN: No skin breakdown. Vital Signs (last 8hr) Date Time Temp Pulse Resp B/P (MAP) Pulse Ox O2 Delivery O2 Flow Rate FiO2 11/23/24 16:00 98.2 74 18 116/50 90 Room Air 11/23/24 11:30 98.6 71 18 126/69 94 Nasal Cannula 2.0 24 11/23/24 11:14 74 18 N/Cannula Low lpm 2.0 28 11/23/24 11:12 74 20 11/23/24 09:46 129/70 LABS: Laboratory: Test 11/23/24 16:24 11/23/24 10:11 11/23/24 05:22 11/22/24 10:25 Range/Units Whole Blood Glucose 172 H 70-110 MG/DL Bedside Glucose Comment Notified Nurse Blood Gas Specimen Type Arterial Arterial Blood pH 7.398 7.350-7.450 Arterial Blood Partial Pressure CO2 49 H 35-48 mmHg Arterial Blood Partial Pressure O2 69.7 L 83.0-108.0 mmHg Arterial Blood HCO3 29.7 H 21.0-28.0 mmol/L Arterial Blood Oxygen Saturation 93.8 L 94.0-98.0 % Arterial Blood Base Excess 3.8 H -2.0-3.0 mmol/L Blood Gas Temperature 37.0 35.5-37.0 CELSIUS Blood Gas Flow-by 2.00 0.00-15.00 L/min Blood Gas Vent Mode NC ROOM AIR FiO2 28.0 % Blood Gas Specimen Comment ELI FLORES White Blood Count 10.3 4.8-10.8 K/uL Red Blood Count 3.97 L 4.50-6.20 MIL/uL Hemoglobin 12.7 L 14.0-18.0 g/dL Hematocrit 38.5 L 42-54 % Mean Corpuscular Volume 97.0 79-99 fL Mean Corpuscular Hemoglobin 32.0 27.0-33.0 pg Mean Corpuscular Hemoglobin Concent 33.0 32.0-36.0 g/dL Red Cell Distribution Width 11.9 11.0-15.5 % Platelet Count 254 130-400 K/uL Mean Platelet Volume 8.8 7.5-10.5 fL Immature Granulocyte % (Auto) 0.9 0-1 % Neutrophils (%) (Auto) 85.9 H 40.0-77.0 % Lymphocytes (%) (Auto) 8.4 L 21.0-51.0 % Monocytes (%) (Auto) 4.4 3.0-13.0 % Eosinophils (%) (Auto) 0.2 0.0-8.0 % Basophils (%) (Auto) 0.2 0.0-5.0 % Neutrophils # (Auto) 8.8 H 1.8-7.7 K/uL Lymphocytes # (Auto) 0.9 L 1.0-4.8 K/uL Monocytes # (Auto) 0.5 0.1-1.0 K/uL Eosinophils # (Auto) 0.02 0.00-0.70 K/uL Basophils # (Auto) 0.02 0.00-0.20 K/uL Absolute Immature Granulocyte (auto 0.09 0-1 K/uL Nucleated Red Blood Cells 0.0 0.0-0.19 % Sodium Level 134 L 136-145 mmol/L Potassium Level 4.7 3.5-5.1 mmol/L Chloride Level 98 L 101-111 mmol/L Carbon Dioxide Level 32 21-32 mmol/L Blood Urea Nitrogen 23 H 7-18 mg/dL Creatinine 1.1 0.5-1.3 mg/dL Glomerular Filtration Rate Calc 67 >90 mL/min Random Glucose 141 H 70-105 mg/dL Total Calcium 8.8 8.5-10.1 mg/dL Magnesium Level 2.10 1.80-2.40 mg/dL Total Bilirubin 0.5 0.2-1.0 mg/dL Aspartate Amino Transf (AST/SGOT) 12 10-37 U/L Alanine Aminotransferase (ALT/SGPT) 26 12-78 U/L Alkaline Phosphatase 71 50-136 U/L Total Protein 6.7 6.0-8.3 g/dL Albumin 2.8 L 3.5-5.0 g/dL White Cell Morphology Comment See comments Erythrocyte Sedimentation Rate 45 H 0-20 MM/HR Prothrombin Time 11.8 H 9.6-11.6 SEC Prothromb Time International Ratio 1.06 0.85-1.15 Activated Partial Thromboplast Time 31.3 26.3-35.5 SEC Hemoglobin A1c 6.0 4.0-6.0 % Estimated Average Glucose (eAG) 126 70-126 mg/dL Troponin I High Sensitivity 20 4-75 ng/L C-Reactive Protein, Quantitative 104.70 H 0.5-3.0 mg/L B-Type Natriuretic Peptide 321 H 0-100 pg/mL Procalcitonin < 0.05 L 0.05-0.5 ng/mL Thyroid Stimulating Hormone (TSH) 4.13 #H 0.36-3.74 uIU/mL SARS-CoV-2 Antigen (Rapid) PRESUMPTIVE NEGATIVE NEGATIVE Test 11/22/24 10:20 Range/Units Influenza Type A Antigen Negative For Type A NEGATIVE Influenza Type B Antigen Negative For Type B NEGATIVE Group A Streptococcus Rapid negative NEGATIVE Current Medications Medications (Trade) Dose Ordered Sig/Hernandez Route PRN Reason Start Time Stop Time Status Last Admin Dose Admin Acetaminophen (TYLenol 500MG TAB) 500 mg Q6H PRN PO MILD PAIN (1-3) 11/22/24 13:00 12/22/24 12:59 Amlodipine Besylate (NorvASC 5MG TAB) 10 mg DAILY PO 11/23/24 09:00 12/23/24 08:59 11/23/24 09:47 10 MG Apixaban (EliquIS) 5 mg BID PO 11/22/24 21:00 12/22/24 20:59 11/23/24 09:46 5 MG Ascorbic Acid (Vitamin C 500mg Tab) 500 mg DAILY PO 11/23/24 09:00 12/23/24 08:59 11/23/24 09:47 500 MG Atorvastatin Calcium (LIPItor 20MG) 20 mg HS PO 11/22/24 21:00 12/22/24 20:59 11/22/24 20:55 20 MG Azithromycin 250 ml @ 250 mls/hr ONCE STAT IVPB 11/22/24 11:47 11/22/24 12:54 DC 11/22/24 12:54 250 MLS/HR Budesonide (Pulmicort 0.5 Mg/2ml) 0.5 mg BIDRESP IH 11/22/24 18:00 12/22/24 12:29 11/23/24 06:26 0.5 MG Budesonide (Pulmicort 0.5 Mg/2ml) 0.5 mg Q12H IH 11/22/24 12:30 11/22/24 14:07 DC Carvedilol (Coreg 25MG) 25 mg BID PO 11/22/24 21:00 12/22/24 20:59 11/23/24 09:46 25 MG Cetirizine HCl (ZYRtec 5 MG TABLET) 10 mg DAILY PO 11/23/24 09:00 12/23/24 08:59 11/23/24 09:45 10 MG Docusate Sodium (COLace 100MG CAP) 100 mg BID PO 11/22/24 21:00 12/22/24 20:59 11/23/24 09:45 100 MG Doxycycline Hyclate (Doxycycline Hyclate) 100 mg BID PO 11/23/24 09:00 11/23/24 11:04 DC 11/23/24 09:45 100 MG Furosemide (LASix 20MG VIAL) 20 mg Q12H IV 11/22/24 20:00 12/22/24 19:59 11/23/24 09:54 20 MG Home Med (Home Medication) (Multivit-Min/ FA/Lycopen/ Lutein (... DAILY PO 11/23/24 09:00 12/23/24 08:59 Insulin Human Regular (humuLIN R 100 UNIT/ML 3ML) INSULIN SLIDING SCAL... ACHS SQ 11/22/24 16:30 12/22/24 16:29 Ipratropium [place] (AtrovENT UD) 0.5 mg [id number] IH 11/22/24 18:00 12/22/24 17:59 11/23/24 11:12 0.5 MG Levofloxacin (LEvaquIN 500MG TAB) 500 mg Q24H PO 11/23/24 11:00 12/03/24 10:59 11/23/24 12:39 500 MG Levofloxacin/ Dextrose (LEvaquIN 750 MG/ D5W 150 ML) 750 mg DAILY IV 11/23/24 09:00 11/22/24 18:29 DC Losartan Potassium (CozAAR 25MG TAB) 25 mg BID PO 11/22/24 21:00 12/22/24 20:59 11/23/24 09:45 25 MG Losartan Potassium (CozAAR 50 mg TAB) 50 mg BID PO 11/22/24 21:00 12/22/24 20:59 11/23/24 09:48 50 MG Magnesium Sulfate 50 ml @ 0 mls/hr PROTOCOL IV 11/22/24 12:30 12/22/24 12:29 Meropenem (Merrem) 1 gm Q12H IVPB 11/22/24 19:00 11/23/24 11:02 DC 11/23/24 09:47 1 GM Meropenem 1 gm/ Sodium Chloride 100 ml @ 33.333 mls/ hr Q12H IVPB 11/22/24 18:30 11/22/24 18:34 DC Methylprednisolone Sodium Succinate (Solu-medROL 40MG) 40 mg Q8H IVP 11/22/24 13:00 12/22/24 12:59 11/23/24 12:39 40 MG Miscellaneous Medication (Olodaterol HCl (Striverdi Respimat)) 2 puff AD PRN IH SHORTNESS OF BREATH 11/22/24 13:00 11/22/24 12:54 DC Pantoprazole Sodium (PROTonix 40MG TAB) 40 mg DAILY PO 11/23/24 09:00 12/23/24 08:59 11/23/24 09:47 40 MG Potassium Chloride 100 ml @ 100 mls/hr AD PRN IV POTASSIUM PROTOCOL 11/22/24 12:30 12/22/24 12:29 Potassium Chloride (K-Dur/Klor-Con 20meq) 20 meq AD PRN PO POTASSIUM PROTOCOL 11/22/24 12:30 12/22/24 12:29 Potassium Chloride (KCl 10% Elixir 20meq/15ml) 20 meq AD PRN PO POTASSIUM PROTOCOL 11/22/24 12:30 12/22/24 12:29 Sennosides (Senna) 1 tab DAILY PRN PO CONSTIPATION 11/22/24 13:00 12/22/24 12:59 Tamsulosin HCl (FloMAX) 0.4 mg AM PO 11/23/24 09:00 12/23/24 08:59 11/23/24 09:45 0.4 MG DIAGNOSTICS / RADIOLOGY: [ ] ASSESSMENT: Acute COPD exacerbation, POA Suspected acute heart failure exacerbation, POA, (awaiting echo to assess for systolic versus diastolic dysfunction) Underlying history of COPD, POA Underlying history of cardiomyopathy with LVEF 35-40% from 2D echocardiogram from 2019, POA History severe allergy to penicillin, POA Underlying history of atrial fibrillation, POA History of chronic anticoagulation with Eliquis, POA Hypertension, POA Hyperlipidemia, POA History of BPH, POA Hyponatremia, POA GERD, POA PLAN: Patient will be admitted to cardiac telemetry floor Patient is presenting with one week history of dyspnea on exertion especially with exertional activities with cough and mild wheezing. Patient has a underlying history of COPD and cardiomyopathy. Patient received high-dose of IV Lasix 80 mg in the ER and reports having significant urinary output. We will start patient on IV steroids with Solu-Medrol 40 mg q.8 hours, as well as IV Meropenem/ Doxycycline, as IV Levaquin is currently not available in pharmacy, and Atrovent nebulizer q.6 hours We will obtain respiratory culture Obtain 2D echocardiogram to assess LV EF We will dose Lasix accordingly based on urine output in the ER, patient is Lasix naive, we will start Lasix 20 mg q.12 hour later tonight Maintain K greater than four and magnesium greater than two Patient to continue with home dose of carvedilol 25 mg b.i.d. and losartan 75 mg b.i.d. for management of underlying hypertension and history of cardiomyopathy Continue with omeprazole 20 mg b.i.d. We will request consultation with pulmonology We will obtain a CT chest without contrast to rule out any developing pneumonia All labs will be repeated in the morning including CBC, CMP, magnesium Patient to continue with Eliquis for history of atrial fibrillation Anticipate hospitalization for 48-72 hours Date of service: 11/22/2024 Plan of care was discussed with patient and at bedside, Jairo Sweeney MD Advanced Care Planning: Which of the following were discussed: Hospice care: Yes __ No _X_ Therapeutic options: Yes _X_ No __ Advance directives: Yes _X_ No __ Other discussions: Discussed with who?: Patient Voluntary nature of this service was explained to the patient? Yes _x_ No __ Amount of time spent: 20 minutes KEVIN VALADEZ MD Nov 23, 2024 17:37
[2024-11-24] VITALS (14 sets, daily range): BP systolic 116–142; BP diastolic 54–72; PULSE 58–79; RESP 18–20; TEMP 97.7–98.4; O2SAT 85–95
--- NOTE | 2024-11-24 14:22 | PN ---
[facility] PROGRESS NOTE Date Patient Seen: Nov 24, 2024 Time of Visit: 14:22 Supervising Physician: Dr. Krystle Paris Consulting Physician: Dr. 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 AAOX3. Currently on 02@1LPM via [place].States he feels better overall. Will wean off oxygen and taper steroids. Denies any chest pain, abdominal pain, nausea or vomiting. 6 minute walk ordered. No family at bedside. REVIEW OF SYSTEMS: 12 point ROS reviewed with patient. Pertinent positives mentioned above. Otherwise negative. PHYSICAL EXAM: GENERAL: alert, weak, awake oriented x 3 HEENT: EOMI, Sclera non icteric, moist mucosa NECK: Supple, no JVD, trachea midline LUNGS: Clear breath sounds bilaterally. No wheezes HEART: Regular rate and rhythm. Normal S1 and S2, without murmurs ABD: Abdomen soft, nontender. Bowel sounds present EXT: No clubbing cyanosis or edema NEURO: AAOx3, follows commands Vital Signs (last 8hr) Date Time Temp Pulse Resp B/P (MAP) Pulse Ox O2 Delivery O2 Flow Rate FiO2 11/24/24 12:00 97.9 72 20 131/68 95 Nasal Cannula 2.0 24 11/24/24 10:55 70 18 11/24/24 09:35 134/69 11/24/24 08:00 97.9 71 18 134/69 92 Nasal Cannula 2.0 24 11/24/24 07:50 92 Nasal Cannula* 2 11/24/24 06:42 58 19 N/Cannula Low lpm 2.0 28 11/24/24 06:41 58 18 LABS: Hematology Labs: Test 11/23/24 05:22 Range/Units White Blood Count 10.3 4.8-10.8 K/uL Red Blood Count 3.97 L 4.50-6.20 MIL/uL Hemoglobin 12.7 L 14.0-18.0 g/dL Hematocrit 38.5 L 42-54 % Mean Corpuscular Volume 97.0 79-99 fL Mean Corpuscular Hemoglobin 32.0 27.0-33.0 pg Mean Corpuscular Hemoglobin Concent 33.0 32.0-36.0 g/dL Red Cell Distribution Width 11.9 11.0-15.5 % Platelet Count 254 130-400 K/uL Mean Platelet Volume 8.8 7.5-10.5 fL Immature Granulocyte % (Auto) 0.9 0-1 % Neutrophils (%) (Auto) 85.9 H 40.0-77.0 % Lymphocytes (%) (Auto) 8.4 L 21.0-51.0 % Monocytes (%) (Auto) 4.4 3.0-13.0 % Eosinophils (%) (Auto) 0.2 0.0-8.0 % Basophils (%) (Auto) 0.2 0.0-5.0 % Neutrophils # (Auto) 8.8 H 1.8-7.7 K/uL Lymphocytes # (Auto) 0.9 L 1.0-4.8 K/uL Monocytes # (Auto) 0.5 0.1-1.0 K/uL Eosinophils # (Auto) 0.02 0.00-0.70 K/uL Basophils # (Auto) 0.02 0.00-0.20 K/uL Absolute Immature Granulocyte (auto 0.09 0-1 K/uL Nucleated Red Blood Cells 0.0 0.0-0.19 % Chemistry Labs: Test 11/24/24 11:25 11/23/24 05:22 Range/Units Whole Blood Glucose 163 H 70-110 MG/DL Bedside Glucose Comment Notified Nurse Sodium Level 134 L 136-145 mmol/L Potassium Level 4.7 3.5-5.1 mmol/L Chloride Level 98 L 101-111 mmol/L Carbon Dioxide Level 32 21-32 mmol/L Blood Urea Nitrogen 23 H 7-18 mg/dL Creatinine 1.1 0.5-1.3 mg/dL Glomerular Filtration Rate Calc 67 >90 mL/min Random Glucose 141 H 70-105 mg/dL Total Calcium 8.8 8.5-10.1 mg/dL Magnesium Level 2.10 1.80-2.40 mg/dL Total Bilirubin 0.5 0.2-1.0 mg/dL Aspartate Amino Transf (AST/SGOT) 12 10-37 U/L Alanine Aminotransferase (ALT/SGPT) 26 12-78 U/L Alkaline Phosphatase 71 50-136 U/L Total Protein 6.7 6.0-8.3 g/dL Albumin 2.8 L 3.5-5.0 g/dL DIAGNOSTICS / RADIOLOGY RESULTS: NA Disposition: Per primary team LOWELL MARTINEZ [employer] Nov 24, 2024 14:22
--- NOTE | 2024-11-24 21:29 | PN ---
[facility] PROGRESS NOTE Date of Service: Nov 24, 2024 Time of Service: 21:28 SUBJECTIVE: [ ] 11/23/24 Patient seen and examined. Care discussed with RN/Improved breathing with IV Lasix and will transitioned to po Lasix today. EF 35%( Unchanged from prior) 11/23/24 Patient seen and examined. Care discussed with RN/Improved breathing with steroids/breathing treatment. EF 35%( Unchanged from prior) REVIEW OF SYSTEMS CONSTITUTIONAL: Malaise, asthenia NEUROLOGICAL: Denies headache, amaurosis fugax, motor weakness, sensory deficit, vertigo/spinning sensation, gait abnormalities, or tremors. ENT: No hearing loss, otalgia, otorrhea, rhinitis, rhinorrhea, hoarseness, or sore throat. CARDIOVASCULAR: Denies any exertional angina, dyspnea on exertion, orthopnea, paroxysmal nocturnal dyspnea, palpitations, life-threatening arrhythmias, claudication. PULMONARY: Shortness of breath, dyspnea on exertion with mild wheezing, mild phlegmatic cough SLEEP: Denies morning headaches, daytime somnolence or napping. Denies difficulty falling asleep, staying asleep, waking from sleep. Denies knowledge of snoring. GASTROINTESTINAL: Denies any type of dysphagia to either liquids or solids. Denies nausea, vomiting, pyrosis, early satiety, abdominal pain, diarrhea, constipation, or changes in stool consistency or caliber. Denies coffee-ground emesis, hematemesis, hematochezia, or melanotic stools. GENITOURINARY: Denies frequency, urgency, nocturia, hematuria or incontinence (Storage/Irritative symptoms.) Low urinary stream, straining to void, urinary intermittency or hesitancy, splitting of the voiding stream, terminal dribbling. ENDOCRINOLOGIC: Denies polyuria, polydipsia, polyphagia or heat/cold intolerances. HEMATOLOGIC: Denies thrombophilia/previous clots, or coagulopathy/bleeding disorders. ONCOLOGIC: Denies personal history of malignancy. DERMATOLOGIC: Denies rashes or pruritus. PSYCHIATRIC: Denies any suicidal or homicidal ideation. Denies hallucinations. PHYSICAL EXAM GENERAL APPEARANCE: The patient is awake, alert, and oriented, sitting up in bed on 2 L of O2 supplementation NEUROLOGICAL: Cranial nerves II-XII grossly intact. Motor is 5/5 in bilateral upper and lower extremities proximal to distal. No sensory deficits. HEENT: Face is symmetric. Pupils are equal and reactive. Extraocular movements are intact. NECK: Supple. No JVD. No thyromegaly. No submental, submandibular, pre- /postauricular, occipital or supraclavicular lymphadenopathy. CHEST: Normal chest expansion. No Telemetry. LUNGS: Patient has crackles noted of bilateral lung bases on the posterior lung arvizu with mild expiratory wheezing noted as well ABDOMEN: Soft, nontender, and nondistended. There is no rebound, voluntary guarding, or rigidity. : Deferred. No Cano. EXTREMITIES: 1+ pitting edema of the bilateral lower extremity SKIN: No skin breakdown. Vital Signs (last 8hr) Date Time Temp Pulse Resp B/P (MAP) Pulse Ox O2 Delivery O2 Flow Rate FiO2 11/24/24 20:46 135/66 11/24/24 19:40 97.7 63 19 130/54 97 Nasal Cannula 2.0 11/24/24 18:54 62 18 N/Cannula Low lpm 2.0 28 11/24/24 18:54 61 18 11/24/24 17:29 68 19 21 68 19 28 11/24/24 16:00 97.7 64 20 134/71 91 Room Air 21 LABS: Laboratory: Test 11/24/24 19:38 11/24/24 16:01 11/23/24 10:11 11/23/24 05:22 Range/Units Whole Blood Glucose 151 H 70-110 MG/DL Bedside Glucose Comment Notified Nurse Blood Gas Specimen Type Arterial Arterial Blood pH 7.398 7.350-7.450 Arterial Blood Partial Pressure CO2 49 H 35-48 mmHg Arterial Blood Partial Pressure O2 69.7 L 83.0-108.0 mmHg Arterial Blood HCO3 29.7 H 21.0-28.0 mmol/L Arterial Blood Oxygen Saturation 93.8 L 94.0-98.0 % Arterial Blood Base Excess 3.8 H -2.0-3.0 mmol/L Blood Gas Temperature 37.0 35.5-37.0 CELSIUS Blood Gas Flow-by 2.00 0.00-15.00 L/min Blood Gas Vent Mode NC ROOM AIR FiO2 28.0 % Blood Gas Specimen Comment ELI FLORES White Blood Count 10.3 4.8-10.8 K/uL Red Blood Count 3.97 L 4.50-6.20 MIL/uL Hemoglobin 12.7 L 14.0-18.0 g/dL Hematocrit 38.5 L 42-54 % Mean Corpuscular Volume 97.0 79-99 fL Mean Corpuscular Hemoglobin 32.0 27.0-33.0 pg Mean Corpuscular Hemoglobin Concent 33.0 32.0-36.0 g/dL Red Cell Distribution Width 11.9 11.0-15.5 % Platelet Count 254 130-400 K/uL Mean Platelet Volume 8.8 7.5-10.5 fL Immature Granulocyte % (Auto) 0.9 0-1 % Neutrophils (%) (Auto) 85.9 H 40.0-77.0 % Lymphocytes (%) (Auto) 8.4 L 21.0-51.0 % Monocytes (%) (Auto) 4.4 3.0-13.0 % Eosinophils (%) (Auto) 0.2 0.0-8.0 % Basophils (%) (Auto) 0.2 0.0-5.0 % Neutrophils # (Auto) 8.8 H 1.8-7.7 K/uL Lymphocytes # (Auto) 0.9 L 1.0-4.8 K/uL Monocytes # (Auto) 0.5 0.1-1.0 K/uL Eosinophils # (Auto) 0.02 0.00-0.70 K/uL Basophils # (Auto) 0.02 0.00-0.20 K/uL Absolute Immature Granulocyte (auto 0.09 0-1 K/uL Nucleated Red Blood Cells 0.0 0.0-0.19 % Sodium Level 134 L 136-145 mmol/L Potassium Level 4.7 3.5-5.1 mmol/L Chloride Level 98 L 101-111 mmol/L Carbon Dioxide Level 32 21-32 mmol/L Blood Urea Nitrogen 23 H 7-18 mg/dL Creatinine 1.1 0.5-1.3 mg/dL Glomerular Filtration Rate Calc 67 >90 mL/min Random Glucose 141 H 70-105 mg/dL Total Calcium 8.8 8.5-10.1 mg/dL Magnesium Level 2.10 1.80-2.40 mg/dL Total Bilirubin 0.5 0.2-1.0 mg/dL Aspartate Amino Transf (AST/SGOT) 12 10-37 U/L Alanine Aminotransferase (ALT/SGPT) 26 12-78 U/L Alkaline Phosphatase 71 50-136 U/L Total Protein 6.7 6.0-8.3 g/dL Albumin 2.8 L 3.5-5.0 g/dL Current Medications Medications (Trade) Dose Ordered Sig/Hernandez Route PRN Reason Start Time Stop Time Status Last Admin Dose Admin Acetaminophen (TYLenol 500MG TAB) 500 mg Q6H PRN PO MILD PAIN (1-3) 11/22/24 13:00 12/22/24 12:59 Amlodipine Besylate (NorvASC 5MG TAB) 10 mg DAILY PO 11/23/24 09:00 12/23/24 08:59 11/24/24 09:34 10 MG Apixaban (EliquIS) 5 mg BID PO 11/22/24 21:00 12/22/24 20:59 11/24/24 20:47 5 MG Ascorbic Acid (Vitamin C 500mg Tab) 500 mg DAILY PO 11/23/24 09:00 12/23/24 08:59 11/24/24 09:35 500 MG Atorvastatin Calcium (LIPItor 20MG) 20 mg HS PO 11/22/24 21:00 12/22/24 20:59 11/24/24 20:46 20 MG Azithromycin 250 ml @ 250 mls/hr ONCE STAT IVPB 11/22/24 11:47 11/22/24 12:54 DC 11/22/24 12:54 250 MLS/HR Budesonide (Pulmicort 0.5 Mg/2ml) 0.5 mg BIDRESP IH 11/22/24 18:00 12/22/24 12:29 11/24/24 18:51 0.5 MG Budesonide (Pulmicort 0.5 Mg/2ml) 0.5 mg Q12H IH 11/22/24 12:30 11/22/24 14:07 DC Carvedilol (Coreg 25MG) 25 mg BID PO 11/22/24 21:00 12/22/24 20:59 11/24/24 20:46 25 MG Cetirizine HCl (ZYRtec 5 MG TABLET) 10 mg DAILY PO 11/23/24 09:00 12/23/24 08:59 11/24/24 09:35 10 MG Docusate Sodium (COLace 100MG CAP) 100 mg BID PO 11/22/24 21:00 12/22/24 20:59 11/24/24 20:47 100 MG Doxycycline Hyclate (Doxycycline Hyclate) 100 mg BID PO 11/23/24 09:00 11/23/24 11:04 DC 11/23/24 09:45 100 MG Furosemide (LASix 20MG VIAL) 20 mg Q12H IV 11/22/24 20:00 12/22/24 19:59 11/24/24 20:46 20 MG Home Med (Home Medication) (Multivit-Min/ FA/Lycopen/ Lutein (... DAILY PO 11/23/24 09:00 12/23/24 08:59 Insulin Human Regular (humuLIN R 100 UNIT/ML 3ML) INSULIN SLIDING SCAL... ACHS SQ 11/22/24 16:30 12/22/24 16:29 Ipratropium [place] (AtrovENT UD) 0.5 mg [id number] IH 11/22/24 18:00 12/22/24 17:59 11/24/24 18:51 0.5 MG Levofloxacin (LEvaquIN 500MG TAB) 500 mg Q24H PO 11/23/24 11:00 12/03/24 10:59 11/24/24 10:59 500 MG Levofloxacin/ Dextrose (LEvaquIN 750 MG/ D5W 150 ML) 750 mg DAILY IV 11/23/24 09:00 11/22/24 18:29 DC Losartan Potassium (CozAAR 25MG TAB) 25 mg BID PO 11/22/24 21:00 12/22/24 20:59 11/24/24 20:46 25 MG Losartan Potassium (CozAAR 50 mg TAB) 50 mg BID PO 11/22/24 21:00 12/22/24 20:59 11/24/24 20:46 50 MG Magnesium Sulfate 50 ml @ 0 mls/hr PROTOCOL IV 11/22/24 12:30 12/22/24 12:29 Meropenem (Merrem) 1 gm Q12H IVPB 11/22/24 19:00 11/23/24 11:02 DC 11/23/24 09:47 1 GM Meropenem 1 gm/ Sodium Chloride 100 ml @ 33.333 mls/ hr Q12H IVPB 11/22/24 18:30 11/22/24 18:34 DC Methylprednisolone Sodium Succinate (Solu-medROL 40MG) 40 mg Q8H IVP 11/22/24 13:00 11/24/24 12:19 DC 11/24/24 05:47 40 MG Miscellaneous Medication (Olodaterol HCl (Striverdi Respimat)) 2 puff AD PRN IH SHORTNESS OF BREATH 11/22/24 13:00 11/22/24 12:54 DC Pantoprazole Sodium (PROTonix 40MG TAB) 40 mg DAILY PO 11/23/24 09:00 12/23/24 08:59 11/24/24 09:35 40 MG Potassium Chloride 100 ml @ 100 mls/hr AD PRN IV POTASSIUM PROTOCOL 11/22/24 12:30 12/22/24 12:29 Potassium Chloride (K-Dur/Klor-Con 20meq) 20 meq AD PRN PO POTASSIUM PROTOCOL 11/22/24 12:30 12/22/24 12:29 Potassium Chloride (KCl 10% Elixir 20meq/15ml) 20 meq AD PRN PO POTASSIUM PROTOCOL 11/22/24 12:30 12/22/24 12:29 Prednisone (deltaSONE/ oraSONE 20MG TAB) 40 mg DAILY PO 11/25/24 09:00 11/30/24 08:59 Sennosides (Senna) 1 tab DAILY PRN PO CONSTIPATION 11/22/24 13:00 12/22/24 12:59 Tamsulosin HCl (FloMAX) 0.4 mg AM PO 11/23/24 09:00 12/23/24 08:59 11/24/24 09:35 0.4 MG DIAGNOSTICS / RADIOLOGY: [ ] ASSESSMENT: Acute COPD exacerbation, POA Acute Systolic and Diastolic heart failure exacerbation, POA Acute Hypoxemic respiratory failure, POA Underlying history of COPD, POA Underlying history of cardiomyopathy with LVEF 35-40% from 2D echocardiogram from 2019, POA History severe allergy to penicillin, POA Underlying history of atrial fibrillation, POA History of chronic anticoagulation with Eliquis, POA Hypertension, POA Hyperlipidemia, POA History of BPH, POA Hyponatremia, POA GERD, POA PLAN: Patient will be admitted to cardiac telemetry floor Patient is presenting with one week history of dyspnea on exertion especially with exertional activities with cough and mild wheezing. Patient has a underlying history of COPD and cardiomyopathy. Patient received high-dose of IV Lasix 80 mg in the ER and reports having significant urinary output. We will start patient on IV steroids with Solu-Medrol 40 mg q.8 hours, as well as IV Meropenem/ Doxycycline, as IV Levaquin is currently not available in pharmacy, and Atrovent nebulizer q.6 hours We will obtain respiratory culture Obtain 2D echocardiogram to assess LV EF We will dose Lasix accordingly based on urine output in the ER, patient is Lasix naive, we will start Lasix 20 mg q.12 hour later tonight Maintain K greater than four and magnesium greater than two Patient to continue with home dose of carvedilol 25 mg b.i.d. and losartan 75 mg b.i.d. for management of underlying hypertension and history of cardiomyopathy Continue with omeprazole 20 mg b.i.d. We will request consultation with pulmonology We will obtain a CT chest without contrast to rule out any developing pneumonia All labs will be repeated in the morning including CBC, CMP, magnesium Patient to continue with Eliquis for history of atrial fibrillation Anticipate hospitalization for 48-72 hours Date of service: 11/22/2024 Plan of care was discussed with patient and at bedside, Jairo Sweeney MD Advanced Care Planning: Which of the following were discussed: Hospice care: Yes __ No _X_ Therapeutic options: Yes _X_ No __ Advance directives: Yes _X_ No __ Other discussions: Discussed with who?: Patient Voluntary nature of this service was explained to the patient? Yes _x_ No __ Amount of time spent: 20 minutes KEVIN VALADEZ MD Nov 24, 2024 21:29
[2024-11-25] VITALS (11 sets, daily range): BP systolic 109–137; BP diastolic 52–64; PULSE 61–75; RESP 18–20; TEMP 97.4–98.1; O2SAT 92–96
[2024-11-25] MEDS: predniSONE 20 MG TABLET PO SCH (09:08)
--- NOTE | 2024-11-25 13:41 | PN ---
[facility] PROGRESS NOTE Date Patient Seen: Nov 25, 2024 Time of Visit: 13:41 Supervising Physician: Dr. Lam Pyle Consulting Physician: Dr. 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 Pertinent positives mentioned above. Otherwise negative. PHYSICAL EXAM: GENERAL: alert, weak, awake oriented x 3 HEENT: EOMI, Sclera non icteric, moist mucosa NECK: Supple, no JVD, trachea midline LUNGS: Clear breath sounds bilaterally. No wheezes HEART: Regular rate and rhythm. Normal S1 and S2, without murmurs ABD: Abdomen soft, nontender. Bowel sounds present EXT: No clubbing cyanosis or edema NEURO: AAOx3, follows commands Vital Signs (last 8hr) Date Time Temp Pulse Resp B/P (MAP) Pulse Ox O2 Delivery O2 Flow Rate FiO2 11/25/24 12:00 97.5 61 18 109/52 92 Nasal Cannula 2.0 11/25/24 11:13 61 18 11/25/24 11:11 61 18 N/Cannula Low lpm 2.0 28 11/25/24 08:59 136/63 11/25/24 08:00 96 Nasal Cannula* 2 28 11/25/24 08:00 98.1 61 18 136/63 96 Room Air 11/25/24 06:35 61 18 11/25/24 06:34 61 18 N/Cannula Low lpm 2.0 28 LABS: Chemistry Labs: Test 11/25/24 11:13 11/24/24 16:01 Range/Units Whole Blood Glucose 110 70-110 MG/DL Bedside Glucose Comment Notified Nurse DIAGNOSTICS / RADIOLOGY RESULTS: NA Disposition: Per primary team LOWELL MARTINEZ Nov 25, 2024 13:41
--- NOTE | 2024-11-25 22:06 | PN ---
[facility] PROGRESS NOTE Date of Service: Nov 25, 2024 Time of Service: 22:04 SUBJECTIVE: [ ] 11/23/24 Patient seen and examined. Care discussed with RN/Improved breathing with IV Lasix and will transitioned to po Lasix today. EF 35%( Unchanged from prior) 11/24/24 Patient seen and examined. Care discussed with RN/Improved breathing with steroids/breathing treatment. EF 35%( Unchanged from prior) 11/25/24 Patient seen and examined. Care discussed with RN/Improved breathing with steroids/breathing treatment. EF 35%( Unchanged from prior) likely will curt home oxygen at discharge REVIEW OF SYSTEMS CONSTITUTIONAL: Malaise, asthenia NEUROLOGICAL: Denies headache, amaurosis fugax, motor weakness, sensory deficit, vertigo/spinning sensation, gait abnormalities, or tremors. ENT: No hearing loss, otalgia, otorrhea, rhinitis, rhinorrhea, hoarseness, or sore throat. CARDIOVASCULAR: Denies any exertional angina, dyspnea on exertion, orthopnea, paroxysmal nocturnal dyspnea, palpitations, life-threatening arrhythmias, claudication. PULMONARY: Shortness of breath, dyspnea on exertion with mild wheezing, mild phlegmatic cough SLEEP: Denies morning headaches, daytime somnolence or napping. Denies difficulty falling asleep, staying asleep, waking from sleep. Denies knowledge of snoring. GASTROINTESTINAL: Denies any type of dysphagia to either liquids or solids. Denies nausea, vomiting, pyrosis, early satiety, abdominal pain, diarrhea, constipation, or changes in stool consistency or caliber. Denies coffee-ground emesis, hematemesis, hematochezia, or melanotic stools. GENITOURINARY: Denies frequency, urgency, nocturia, hematuria or incontinence (Storage/Irritative symptoms.) Low urinary stream, straining to void, urinary intermittency or hesitancy, splitting of the voiding stream, terminal dribbling. ENDOCRINOLOGIC: Denies polyuria, polydipsia, polyphagia or heat/cold intolerances. HEMATOLOGIC: Denies thrombophilia/previous clots, or coagulopathy/bleeding disorders. ONCOLOGIC: Denies personal history of malignancy. DERMATOLOGIC: Denies rashes or pruritus. PSYCHIATRIC: Denies any suicidal or homicidal ideation. Denies hallucinations. PHYSICAL EXAM GENERAL APPEARANCE: The patient is awake, alert, and oriented, sitting up in bed on 2 L of O2 supplementation NEUROLOGICAL: Cranial nerves II-XII grossly intact. Motor is 5/5 in bilateral upper and lower extremities proximal to distal. No sensory deficits. HEENT: Face is symmetric. Pupils are equal and reactive. Extraocular movements are intact. NECK: Supple. No JVD. No thyromegaly. No submental, submandibular, pre- /postauricular, occipital or supraclavicular lymphadenopathy. CHEST: Normal chest expansion. No Telemetry. LUNGS: Patient has crackles noted of bilateral lung bases on the posterior lung arvizu with mild expiratory wheezing noted as well ABDOMEN: Soft, nontender, and nondistended. There is no rebound, voluntary guarding, or rigidity. : Deferred. No Cano. EXTREMITIES: 1+ pitting edema of the bilateral lower extremity SKIN: No skin breakdown. Vital Signs (last 8hr) Date Time Temp Pulse Resp B/P (MAP) Pulse Ox O2 Delivery O2 Flow Rate FiO2 11/25/24 20:26 137/69 11/25/24 20:00 97.9 68 20 137/64 92 Nasal Cannula 2.0 11/25/24 18:34 68 18 11/25/24 18:34 68 18 N/Cannula Low lpm 2.0 28 11/25/24 16:00 97.3 75 20 123/62 93 Nasal Cannula 2.0 LABS: Laboratory: Test 11/25/24 21:48 11/24/24 16:01 Range/Units Whole Blood Glucose 127 H 70-110 MG/DL Bedside Glucose Comment Notified Nurse Current Medications Medications (Trade) Dose Ordered Sig/Hernandez Route PRN Reason Start Time Stop Time Status Last Admin Dose Admin Acetaminophen (TYLenol 500MG TAB) 500 mg Q6H PRN PO MILD PAIN (1-3) 11/22/24 13:00 12/22/24 12:59 Amlodipine Besylate (NorvASC 5MG TAB) 10 mg DAILY PO 11/23/24 09:00 12/23/24 08:59 11/25/24 08:59 10 MG Apixaban (EliquIS) 5 mg BID PO 11/22/24 21:00 12/22/24 20:59 11/25/24 20:26 5 MG Ascorbic Acid (Vitamin C 500mg Tab) 500 mg DAILY PO 11/23/24 09:00 12/23/24 08:59 11/25/24 08:59 500 MG Atorvastatin Calcium (LIPItor 20MG) 20 mg HS PO 11/22/24 21:00 12/22/24 20:59 11/25/24 20:26 20 MG Azithromycin 250 ml @ 250 mls/hr ONCE STAT IVPB 11/22/24 11:47 11/22/24 12:54 DC 11/22/24 12:54 250 MLS/HR Budesonide (Pulmicort 0.5 Mg/2ml) 0.5 mg BIDRESP IH 11/22/24 18:00 12/22/24 12:29 11/25/24 18:32 0.5 MG Budesonide (Pulmicort 0.5 Mg/2ml) 0.5 mg Q12H IH 11/22/24 12:30 11/22/24 14:07 DC Carvedilol (Coreg 25MG) 25 mg BID PO 11/22/24 21:00 12/22/24 20:59 11/25/24 20:26 25 MG Cetirizine HCl (ZYRtec 5 MG TABLET) 10 mg DAILY PO 11/23/24 09:00 12/23/24 08:59 11/25/24 08:59 10 MG Docusate Sodium (COLace 100MG CAP) 100 mg BID PO 11/22/24 21:00 12/22/24 20:59 11/25/24 20:25 100 MG Doxycycline Hyclate (Doxycycline Hyclate) 100 mg BID PO 11/23/24 09:00 11/23/24 11:04 DC 11/23/24 09:45 100 MG Furosemide (LASix 20MG VIAL) 20 mg Q12H IV 11/22/24 20:00 12/22/24 19:59 11/25/24 20:25 20 MG Home Med (Home Medication) (Multivit-Min/ FA/Lycopen/ Lutein (... DAILY PO 11/23/24 09:00 12/23/24 08:59 Insulin Human Regular (humuLIN R 100 UNIT/ML 3ML) INSULIN SLIDING SCAL... ACHS SQ 11/22/24 16:30 12/22/24 16:29 Ipratropium [place] (AtrovENT UD) 0.5 mg [id number] IH 11/22/24 18:00 12/22/24 17:59 11/25/24 18:32 0.5 MG Levofloxacin (LEvaquIN 500MG TAB) 500 mg Q24H PO 11/23/24 11:00 12/03/24 10:59 11/25/24 12:23 500 MG Levofloxacin/ Dextrose (LEvaquIN 750 MG/ D5W 150 ML) 750 mg DAILY IV 11/23/24 09:00 11/22/24 18:29 DC Losartan Potassium (CozAAR 25MG TAB) 25 mg BID PO 11/22/24 21:00 12/22/24 20:59 11/25/24 20:26 25 MG Losartan Potassium (CozAAR 50 mg TAB) 50 mg BID PO 11/22/24 21:00 12/22/24 20:59 11/25/24 20:26 50 MG Magnesium Sulfate 50 ml @ 0 mls/hr PROTOCOL IV 11/22/24 12:30 12/22/24 12:29 Meropenem (Merrem) 1 gm Q12H IVPB 11/22/24 19:00 11/23/24 11:02 DC 11/23/24 09:47 1 GM Meropenem 1 gm/ Sodium Chloride 100 ml @ 33.333 mls/ hr Q12H IVPB 11/22/24 18:30 11/22/24 18:34 DC Methylprednisolone Sodium Succinate (Solu-medROL 40MG) 40 mg Q8H IVP 11/22/24 13:00 11/24/24 12:19 DC 11/24/24 05:47 40 MG Miscellaneous Medication (Olodaterol HCl (Striverdi Respimat)) 2 puff AD PRN IH SHORTNESS OF BREATH 11/22/24 13:00 11/22/24 12:54 DC Pantoprazole Sodium (PROTonix 40MG TAB) 40 mg DAILY PO 11/23/24 09:00 12/23/24 08:59 11/25/24 08:59 40 MG Potassium Chloride 100 ml @ 100 mls/hr AD PRN IV POTASSIUM PROTOCOL 11/22/24 12:30 12/22/24 12:29 Potassium Chloride (K-Dur/Klor-Con 20meq) 20 meq AD PRN PO POTASSIUM PROTOCOL 11/22/24 12:30 12/22/24 12:29 Potassium Chloride (KCl 10% Elixir 20meq/15ml) 20 meq AD PRN PO POTASSIUM PROTOCOL 11/22/24 12:30 12/22/24 12:29 Prednisone (deltaSONE/ oraSONE 20MG TAB) 40 mg DAILY PO 11/25/24 09:00 11/30/24 08:59 11/25/24 09:08 40 MG Sennosides (Senna) 1 tab DAILY PRN PO CONSTIPATION 11/22/24 13:00 12/22/24 12:59 Tamsulosin HCl (FloMAX) 0.4 mg AM PO 11/23/24 09:00 12/23/24 08:59 11/25/24 09:00 0.4 MG DIAGNOSTICS / RADIOLOGY: [ ] ASSESSMENT: Acute COPD exacerbation, POA Acute Systolic and Diastolic heart failure exacerbation, POA Acute Hypoxemic respiratory failure, POA Underlying history of COPD, POA Underlying history of cardiomyopathy with LVEF 35-40% from 2D echocardiogram from 2019, POA History severe allergy to penicillin, POA Underlying history of atrial fibrillation, POA History of chronic anticoagulation with Eliquis, POA Hypertension, POA Hyperlipidemia, POA History of BPH, POA Hyponatremia, POA GERD, POA PLAN: Patient will be admitted to cardiac telemetry floor Patient is presenting with one week history of dyspnea on exertion especially with exertional activities with cough and mild wheezing. Patient has a underlying history of COPD and cardiomyopathy. Patient received high-dose of IV Lasix 80 mg in the ER and reports having significant urinary output. We will start patient on IV steroids with Solu-Medrol 40 mg q.8 hours, as well as IV Meropenem/ Doxycycline, as IV Levaquin is currently not available in pharmacy, and Atrovent nebulizer q.6 hours We will obtain respiratory culture Obtain 2D echocardiogram to assess LV EF We will dose Lasix accordingly based on urine output in the ER, patient is Lasix naive, we will start Lasix 20 mg q.12 hour later tonight Maintain K greater than four and magnesium greater than two Patient to continue with home dose of carvedilol 25 mg b.i.d. and losartan 75 mg b.i.d. for management of underlying hypertension and history of cardiomyopathy Continue with omeprazole 20 mg b.i.d. We will request consultation with pulmonology We will obtain a CT chest without contrast to rule out any developing pneumonia All labs will be repeated in the morning including CBC, CMP, magnesium Patient to continue with Eliquis for history of atrial fibrillation Anticipate hospitalization for 48-72 hours Date of service: 11/22/2024 Plan of care was discussed with patient and at bedside, Jairo Sweeney MD Advanced Care Planning: Which of the following were discussed: Hospice care: Yes __ No _X_ Therapeutic options: Yes _X_ No __ Advance directives: Yes _X_ No __ Other discussions: Discussed with who?: Patient Voluntary nature of this service was explained to the patient? Yes _x_ No __ Amount of time spent: 20 minutes KEVIN VALADEZ MD Nov 25, 2024 22:06
[2024-11-26] VITALS (12 sets, daily range): BP systolic 2–142; BP diastolic 50–76; PULSE 62–71; RESP 18–20; TEMP 97.6–98.3; O2SAT 93–95
--- NOTE | 2024-11-26 10:54 | PN ---
[facility] PROGRESS NOTE Date Patient Seen: Nov 26, 2024 Time of Visit: 10:54 Supervising Physician: Dr. Abhinav Perdomo Consulting Physician: Dr. Sweeney Inpatient Consults: Cardiology PROBLEM LIST: Acute hypoxemic respiratory failure Acute COPD exacerbation, POA Interstitial lung disease, POA Chronic combined congestive heart failure, EF of 30 35% seen on 2D echo, POA Stage II diastolic dysfunction, POA Atrial fibrillation, rate controlled, POA Hypertension Octogenarian PLAN: Continue O2 therapy, wean oxygen, failed 6 minute walk test, pending home oxygen Taper steroids to prednisone 40mg PO daily x 5 days, recommend oral ABX for total of 10 days Continue on IV ABX while in house Continue on CPT Continue on Duonebs and pulmicort PT/OT eval and treat Continue cardiac monitoring BiPAP at night as needed INTERVAL HISTORY: Patient assessed at bedside. AAOX3. Currently on 02@ 2LPM via [place]. States he feels better overall. Appetite is good. Denies any chest pain, abdominal pain, nausea or vomiting. Pending for home oxygen to be setup, likely until Thursday. No family at bedside. REVIEW OF SYSTEMS: 12 point ROS reviewed with patient. Pertinent positives mentioned above. Otherwise negative. PHYSICAL EXAM: GENERAL: alert, weak, awake oriented x 3 HEENT: EOMI, Sclera non icteric, moist mucosa NECK: Supple, no JVD, trachea midline LUNGS: Clear breath sounds bilaterally. No wheezes HEART: Regular rate and rhythm. Normal S1 and S2, without murmurs ABD: Abdomen soft, nontender. Bowel sounds present EXT: No clubbing cyanosis or edema NEURO: AAOx3, follows commands Vital Signs (last 8hr) Date Time Temp Pulse Resp B/P (MAP) Pulse Ox O2 Delivery O2 Flow Rate FiO2 11/26/24 09:13 142/74 11/26/24 08:00 97.7 63 18 142/74 93 Nasal Cannula 2.0 11/26/24 07:04 65 18 N/Cannula Low lpm 2.0 28 11/26/24 06:57 62 18 11/26/24 04:00 98.1 62 20 137/76 94 Nasal Cannula 2.0 LABS: Chemistry Labs: Test 11/26/24 05:59 11/24/24 16:01 Range/Units Whole Blood Glucose 98 70-110 MG/DL Bedside Glucose Comment Notified Nurse DIAGNOSTICS / RADIOLOGY RESULTS: NA Disposition: Per primary team LOWELL PERDOMO CHIEF TELEPHONE OPERATOR Nov 26, 2024 10:54
[2024-11-26 12:00] LABS: POTASSIUM 3.5 mmol/L (3.5-5.1)
[2024-11-26] MEDS: PoTASSium chloRIDE 20MEQ ER 20 MEQ ERTAB PO PRN (12:40)
--- NOTE | 2024-11-26 18:44 | PN ---
[facility] PROGRESS NOTE Date of Service: Nov 26, 2024 Time of Service: 18:43 SUBJECTIVE: [ ] 11/23/24 Patient seen and examined. Care discussed with RN/Improved breathing with IV Lasix and will transitioned to po Lasix today. EF 35%( Unchanged from prior) 11/24/24 Patient seen and examined. Care discussed with RN/Improved breathing with steroids/breathing treatment. EF 35%( Unchanged from prior) 11/25/24 Patient seen and examined. Care discussed with RN/Improved breathing with steroids/breathing treatment. EF 35%( Unchanged from prior) likely will curt home oxygen at discharge 11/26/24 Patient seen and examined. Care discussed with RN/Improved breathing with steroids/breathing treatment. EF 35%( Unchanged from prior) likely will curt home oxygen at discharge/likely to happen by Thursday REVIEW OF SYSTEMS CONSTITUTIONAL: Malaise, asthenia NEUROLOGICAL: Denies headache, amaurosis fugax, motor weakness, sensory deficit, vertigo/spinning sensation, gait abnormalities, or tremors. ENT: No hearing loss, otalgia, otorrhea, rhinitis, rhinorrhea, hoarseness, or sore throat. CARDIOVASCULAR: Denies any exertional angina, dyspnea on exertion, orthopnea, paroxysmal nocturnal dyspnea, palpitations, life-threatening arrhythmias, claudication. PULMONARY: Shortness of breath, dyspnea on exertion with mild wheezing, mild phlegmatic cough SLEEP: Denies morning headaches, daytime somnolence or napping. Denies difficulty falling asleep, staying asleep, waking from sleep. Denies knowledge of snoring. GASTROINTESTINAL: Denies any type of dysphagia to either liquids or solids. Denies nausea, vomiting, pyrosis, early satiety, abdominal pain, diarrhea, constipation, or changes in stool consistency or caliber. Denies coffee-ground emesis, hematemesis, hematochezia, or melanotic stools. GENITOURINARY: Denies frequency, urgency, nocturia, hematuria or incontinence (Storage/Irritative symptoms.) Low urinary stream, straining to void, urinary intermittency or hesitancy, splitting of the voiding stream, terminal dribbling. ENDOCRINOLOGIC: Denies polyuria, polydipsia, polyphagia or heat/cold intolerances. HEMATOLOGIC: Denies thrombophilia/previous clots, or coagulopathy/bleeding disorders. ONCOLOGIC: Denies personal history of malignancy. DERMATOLOGIC: Denies rashes or pruritus. PSYCHIATRIC: Denies any suicidal or homicidal ideation. Denies hallucinations. PHYSICAL EXAM GENERAL APPEARANCE: The patient is awake, alert, and oriented, sitting up in bed on 2 L of O2 supplementation NEUROLOGICAL: Cranial nerves II-XII grossly intact. Motor is 5/5 in bilateral upper and lower extremities proximal to distal. No sensory deficits. HEENT: Face is symmetric. Pupils are equal and reactive. Extraocular movements are intact. NECK: Supple. No JVD. No thyromegaly. No submental, submandibular, pre-/po stauricular, occipital or supraclavicular lymphadenopathy. CHEST: Normal chest expansion. No Telemetry. LUNGS: Patient has crackles noted of bilateral lung bases on the posterior lung arvizu with mild expiratory wheezing noted as well ABDOMEN: Soft, nontender, and nondistended. There is no rebound, voluntary guarding, or rigidity. : Deferred. No Cano. EXTREMITIES: 1+ pitting edema of the bilateral lower extremity SKIN: No skin breakdown. Vital Signs (last 8hr) Date Time Temp Pulse Resp B/P (MAP) Pulse Ox O2 Delivery O2 Flow Rate FiO2 11/26/24 16:00 97.5 70 19 132/71 91 Nasal Cannula 2.5 11/26/24 12:08 67 18 N/Cannula Low lpm 2.0 28 11/26/24 12:03 67 18 11/26/24 12:00 97.5 66 18 2/ 94 Nasal Cannula LABS: Laboratory: Test 11/26/24 15:28 11/26/24 11:41 Range/Units Whole Blood Glucose 154 H 70-110 MG/DL Potassium Level 3.5 3.5-5.1 mmol/L Magnesium Level 2.00 1.80-2.40 mg/dL Current Medications Medications (Trade) Dose Ordered Sig/Hernandez Route PRN Reason Start Time Stop Time Status Last Admin Dose Admin Acetaminophen (TYLenol 500MG TAB) 500 mg Q6H PRN PO MILD PAIN (1-3) 11/22/24 13:00 12/22/24 12:59 Amlodipine Besylate (NorvASC 5MG TAB) 10 mg DAILY PO 11/23/24 09:00 12/23/24 08:59 11/26/24 09:13 10 MG Apixaban (EliquIS) 5 mg BID PO 11/22/24 21:00 12/22/24 20:59 11/26/24 09:14 5 MG Ascorbic Acid (Vitamin C 500mg Tab) 500 mg DAILY PO 11/23/24 09:00 12/23/24 08:59 11/26/24 09:13 500 MG Atorvastatin Calcium (LIPItor 20MG) 20 mg HS PO 11/22/24 21:00 12/22/24 20:59 11/25/24 20:26 20 MG Azithromycin 250 ml @ 250 mls/hr ONCE STAT IVPB 11/22/24 11:47 11/22/24 12:54 DC 11/22/24 12:54 250 MLS/HR Budesonide (Pulmicort 0.5 Mg/2ml) 0.5 mg BIDRESP IH 11/22/24 18:00 12/22/24 12:29 11/26/24 06:56 0.5 MG Budesonide (Pulmicort 0.5 Mg/2ml) 0.5 mg Q12H IH 11/22/24 12:30 11/22/24 14:07 DC Carvedilol (Coreg 25MG) 25 mg BID PO 11/22/24 21:00 12/22/24 20:59 11/26/24 09:13 25 MG Cetirizine HCl (ZYRtec 5 MG TABLET) 10 mg DAILY PO 11/23/24 09:00 12/23/24 08:59 11/26/24 09:12 10 MG Docusate Sodium (COLace 100MG CAP) 100 mg BID PO 11/22/24 21:00 12/22/24 20:59 11/26/24 09:12 100 MG Doxycycline Hyclate (Doxycycline Hyclate) 100 mg BID PO 11/23/24 09:00 11/23/24 11:04 DC 11/23/24 09:45 100 MG Furosemide (LASix 20MG VIAL) 20 mg Q12H IV 11/22/24 20:00 12/22/24 19:59 11/26/24 09:14 20 MG Home Med (Home Medication) (Multivit-Min/ FA/Lycopen/ Lutein (... DAILY PO 11/23/24 09:00 12/23/24 08:59 Insulin Human Regular (humuLIN R 100 UNIT/ML 3ML) INSULIN SLIDING SCAL... ACHS SQ 11/22/24 16:30 12/22/24 16:29 Ipratropium Moran (AtrovENT UD) 0.5 mg G0OLARF IH 11/22/24 18:00 12/22/24 17:59 11/26/24 12:03 0.5 MG Levofloxacin (LEvaquIN 500MG TAB) 500 mg Q24H PO 11/23/24 11:00 12/03/24 10:59 11/26/24 11:08 500 MG Levofloxacin/ Dextrose (LEvaquIN 750 MG/ D5W 150 ML) 750 mg DAILY IV 11/23/24 09:00 11/22/24 18:29 DC Losartan Potassium (CozAAR 25MG TAB) 25 mg BID PO 11/22/24 21:00 12/22/24 20:59 11/26/24 09:12 25 MG Losartan Potassium (CozAAR 50 mg TAB) 50 mg BID PO 11/22/24 21:00 12/22/24 20:59 11/26/24 09:13 50 MG Magnesium Sulfate 50 ml @ 0 mls/hr PROTOCOL IV 11/22/24 12:30 12/22/24 12:29 Meropenem (Merrem) 1 gm Q12H IVPB 11/22/24 19:00 11/23/24 11:02 DC 11/23/24 09:47 1 GM Meropenem 1 gm/ Sodium Chloride 100 ml @ 33.333 mls/ hr Q12H IVPB 11/22/24 18:30 11/22/24 18:34 DC Methylprednisolone Sodium Succinate (Solu-medROL 40MG) 40 mg Q8H IVP 11/22/24 13:00 11/24/24 12:19 DC 11/24/24 05:47 40 MG Miscellaneous Medication (Olodaterol HCl (Striverdi Respimat)) 2 puff AD PRN IH SHORTNESS OF BREATH 11/22/24 13:00 11/22/24 12:54 DC Pantoprazole Sodium (PROTonix 40MG TAB) 40 mg DAILY PO 11/23/24 09:00 12/23/24 08:59 11/26/24 09:12 40 MG Potassium Chloride 100 ml @ 100 mls/hr AD PRN IV POTASSIUM PROTOCOL 11/22/24 12:30 12/22/24 12:29 Potassium Chloride (K-Dur/Klor-Con 20meq) 20 meq AD PRN PO POTASSIUM PROTOCOL 11/22/24 12:30 12/22/24 12:29 11/26/24 12:40 20 MEQ Potassium Chloride (KCl 10% Elixir 20meq/15ml) 20 meq AD PRN PO POTASSIUM PROTOCOL 11/22/24 12:30 12/22/24 12:29 Prednisone (deltaSONE/ oraSONE 20MG TAB) 40 mg DAILY PO 11/25/24 09:00 11/30/24 08:59 11/26/24 09:14 40 MG Sennosides (Senna) 1 tab DAILY PRN PO CONSTIPATION 11/22/24 13:00 12/22/24 12:59 Tamsulosin HCl (FloMAX) 0.4 mg AM PO 11/23/24 09:00 12/23/24 08:59 11/26/24 09:12 0.4 MG DIAGNOSTICS / RADIOLOGY: [ ] ASSESSMENT: Acute COPD exacerbation, POA Acute Systolic and Diastolic heart failure exacerbation, POA Acute Hypoxemic respiratory failure, POA Underlying history of COPD, POA Underlying history of cardiomyopathy with LVEF 35-40% from 2D echocardiogram from 2019, POA History severe allergy to penicillin, POA Underlying history of atrial fibrillation, POA History of chronic anticoagulation with Eliquis, POA Hypertension, POA Hyperlipidemia, POA History of BPH, POA Hyponatremia, POA GERD, POA PLAN: Patient will be admitted to cardiac telemetry floor Patient is presenting with one week history of dyspnea on exertion especially with exertional activities with cough and mild wheezing. Patient has a underlying history of COPD and cardiomyopathy. Patient received high-dose of IV Lasix 80 mg in the ER and reports having significant urinary output. We will start patient on IV steroids with Solu-Medrol 40 mg q.8 hours, as well as IV Meropenem/ Doxycycline, as IV Levaquin is currently not available in pharmacy, and Atrovent nebulizer q.6 hours We will obtain respiratory culture Obtain 2D echocardiogram to assess LV EF We will dose Lasix accordingly based on urine output in the ER, patient is Lasix naive, we will start Lasix 20 mg q.12 hour later tonight Maintain K greater than four and magnesium greater than two Patient to continue with home dose of carvedilol 25 mg b.i.d. and losartan 75 mg b.i.d. for management of underlying hypertension and history of cardiomyopathy Continue with omeprazole 20 mg b.i.d. We will request consultation with pulmonology We will obtain a CT chest without contrast to rule out any developing pneumonia All labs will be repeated in the morning including CBC, CMP, magnesium Patient to continue with Eliquis for history of atrial fibrillation Anticipate hospitalization for 48-72 hours Date of service: 11/22/2024 Plan of care was discussed with patient and at bedside, Jairo Sweeney MD Advanced Care Planning: Which of the following were discussed: Hospice care: Yes __ No _X_ Therapeutic options: Yes _X_ No __ Advance directives: Yes _X_ No __ Other discussions: Discussed with who?: Patient Voluntary nature of this service was explained to the patient? Yes _x_ No __ Amount of time spent: 20 minutes KEVIN VALADEZ MD Nov 26, 2024 18:43
[2024-11-27] VITALS (7 sets, daily range): BP systolic 120–142; BP diastolic 58–70; PULSE 62–74; RESP 18–20; TEMP 97.5–98.8; O2SAT 90–95
--- NOTE | 2024-11-27 14:39 | DS ---
Discharge Summary Hospital Course Summary: 1-year-old male with underlying history of atrial fibrillation maintained on chronic anticoagulation with Eliquis, BPH, coronary artery disease, COPD, hypertension, hyperlipidemia, history of pacemaker placement who presented to the ER for further evaluation of shortness of breath.. Symptoms have been ongoing for 1 week and patient states that he has progressively worsened. Shortness of breath is worsened with exertional activities and patient's is at bedside who states that usually, patient walks his dog twice a day, over the last several days he has not been able to due to shortness of breath and dyspnea on exertion. He has not noticed significant lower extremity edema. Denies history of heart failure. Patient is followed by heart clinic as outpatient. He has also noticed mild cough with wheezing as well. Denies any significant fevers or chills. Denies any active chest pain. Patient denies being on outpatient diuretics. He usually sleeps with two pillows at night and has noticed that he has frequent nocturia. Patient denies any pleurisy or focal weakness of upper or lower extremities. He has a history of underlying atrial fibrillation and is maintained on chronic anticoagulation with Eliquis. Patient states that he took his dose of Eliquis this morning. On presentation to the hospital, patient was noted to be afebrile with T-max of 97.9 F, heart rate of 73, blood pressure 129/73. Patient was noted to be hypoxic with O2 saturations of 90% requiring 2 L of O2 supplementation by nasal cannula. Patient received 80 mg of IV Lasix by ER provider. Chest x-ray showed bilateral infiltrates. He improved with a combination of broad-spectrum IV antibiotics, steroids. Echocardiogram showed EF of 30-35% and diuresis was continued. He was slowly started gaining strength and ambulating. Initially it was thought that he will need home oxygen when he had did well with the 6 minute walk test and was discharged home in a stable condition Assessment/Plan: ASSESSMENT: Acute COPD exacerbation, POA Acute Systolic and Diastolic heart failure exacerbation, POA Acute Hypoxemic respiratory failure, POA Underlying history of COPD, POA Underlying history of cardiomyopathy with LVEF 35-40% from 2D echocardiogram from 2019, POA History severe allergy to penicillin, POA Underlying history of atrial fibrillation, POA History of chronic anticoagulation with Eliquis, POA Hypertension, POA Hyperlipidemia, POA History of BPH, POA Hyponatremia, POA GERD, POA PLAN: Patient will be admitted to cardiac telemetry floor Patient is presenting with one week history of dyspnea on exertion especially with exertional activities with cough and mild wheezing. Patient has a underlying history of COPD and cardiomyopathy. Patient received high-dose of IV Lasix 80 mg in the ER and reports having significant urinary output. We will start patient on IV steroids with Solu-Medrol 40 mg q.8 hours, as well as IV Meropenem/ Doxycycline, as IV Levaquin is currently not available in pharmacy, and Atrovent nebulizer q.6 hours We will obtain respiratory culture Obtain 2D echocardiogram to assess LV EF We will dose Lasix accordingly based on urine output in the ER, patient is Lasix naive, we will start Lasix 20 mg q.12 hour later tonight Maintain K greater than four and magnesium greater than two Patient to continue with home dose of carvedilol 25 mg b.i.d. and losartan 75 mg b.i.d. for management of underlying hypertension and history of cardiomyopathy Continue with omeprazole 20 mg b.i.d. We will request consultation with pulmonology We will obtain a CT chest without contrast to rule out any developing pneumonia All labs will be repeated in the morning including CBC, CMP, magnesium Patient to continue with Eliquis for history of atrial fibrillation Anticipate hospitalization for 48-72 hours Date of service: 11/22/2024 Plan of care was discussed with patient and at bedside, Jairo Sweeney MD Advanced Care Planning: Which of the following were discussed: Hospice care: Yes __ No _X_ Therapeutic options: Yes _X_ No __ Advance directives: Yes _X_ No __ Other discussions: Discussed with who?: Patient Voluntary nature of this service was explained to the patient? Yes _x_ No __ Amount of time spent: 20 minutes Home Medications: Reported Medications Acetic Acid (Acetic Acid) 2 % Solution, 15 ML OT AD PRN for EAR SKIN IRRITATION, ML 06/03/24 Olodaterol HCl (Striverdi Respimat) 2.5 Mcg/Actuation Mist.inhal, 2 PUFF IH AD PRN for SHORTNESS OF BREATH 06/01/24 [bethamethasone] No Conflict Check, 1 APPL TP AD PRN for RASH 06/01/24 Diclofenac Sodium (Diclofenac Sodium) 1 % Gel..gram., 1 APPL TP QID PRN for PAIN 06/01/24 [tazorotene] No Conflict Check, 1 APPL TP AD 06/01/24 [fiber] No Conflict Check, 5 CAP PO DAILY 06/01/24 Omeprazole (Omeprazole) 20 Mg Capsule.dr, 20 MG PO BID, CAP 06/01/24 Tamsulosin HCl (Flomax) 0.4 Mg Cap.er.24h, 0.4 MG PO AM, CAPSULE. 06/01/24 Apixaban (Eliquis) 5 Mg Tablet, 5 MG PO BID, TAB RESUME ON 06/07/2024 06/01/24 Amlodipine Besylate (Amlodipine Besylate) 10 Mg Tablet, 10 MG PO AM for 30 Days, #30 TAB 0 Refills 06/01/24 Losartan Potassium (Losartan Potassium) 50 Mg Tablet, 75 MG PO BID, TAB 10/08/20 Carvedilol (Carvedilol) 25 Mg Tablet, 25 MG PO BID, TAB 10/08/20 Ascorbic Acid (Vitamin C) 500 Mg Capsule, 500 MG PO DAILY, CAP 01/05/19 Multivit-Min/FA/Lycopen/Lutein (Centrum Silver Men Tablet) 1 Each Tablet, 1 EACH PO DAILY, TAB 01/05/19 Cetirizine HCl (Cetirizine HCl) 10 Mg Tablet, 10 MG PO DAILY, TAB 01/05/19 Atorvastatin Calcium (LIPITOR) 40 Mg Tablet, 20 MG PO HS, TAB 01/05/19 Sennosides (Sennosides) 8.6 Mg Tablet, 8.6 MG PO 4x/day PRN for CONSTIPATION, TAB 01/05/19 Docusate Sodium (Docusate Sodium) 100 Mg Tablet, 100 MG PO BID, TAB 01/05/19 KEVIN VALADEZ MD Nov 27, 2024 14:39
--- NOTE | 2024-11-27 14:59 | NUR ---
Discharge Patient been discharge home, all discharge instructions given to patient, all questions answered, no concerns at this time, written prescription given to patient, Dr. Vail [facility], patient in good spirit at this time, waiting for spouse to pick him up.
[2024-11-27] MEDS ORDERED: FURO40TA7 PO (15:12)
--- NOTE | 2024-11-27 15:15 | NUR ---
DISCHARGE Patient left facility at this time.
--- NOTE | 2024-11-27 16:17 | PN ---
[facility] PROGRESS NOTE Date Patient Seen: Nov 27, 2024 Time of Visit: 16:17 Supervising Physician: Dr. Abhinav Perdomo Consulting Physician: Dr. Sweeney Inpatient Consults: Cardiology PROBLEM LIST: Acute hypoxemic respiratory failure Acute COPD exacerbation, POA Interstitial lung disease, POA Chronic combined congestive heart failure, EF of 30 35% seen on 2D echo, POA Stage II diastolic dysfunction, POA Atrial fibrillation, rate controlled, POA Hypertension Octogenarian PLAN: Passed 6 minute walk test today, follow up with [place] rat culturist Thursday RX for Levaquin, prednisone, pro air, symbicort written and Lasix sent by primary team Continue on CPT Continue on Duonebs and pulmicort PT/OT eval and treat Continue cardiac monitoring BiPAP at night as needed INTERVAL HISTORY: Patient assessed at bedside. AAOX3. Currently on room air since last night at 2100. States he is ready to go home. Appetite is good. Denies any chest pain, abdominal pain, nausea or vomiting. Passed 6 minute walk test. Advised to follow up with rat culturist in [place] on Thursday, verbalized understanding. No family at bedside. REVIEW OF SYSTEMS: 12 point ROS reviewed with patient. Pertinent positives mentioned above. Otherwise negative. PHYSICAL EXAM: GENERAL: alert, weak, awake oriented x 3 HEENT: EOMI, Sclera non icteric, moist mucosa NECK: Supple, no JVD, trachea midline LUNGS: Clear breath sounds bilaterally. No wheezes HEART: Regular rate and rhythm. Normal S1 and S2, without murmurs ABD: Abdomen soft, nontender. Bowel sounds present EXT: No clubbing cyanosis or edema NEURO: AAOx3, follows commands Vital Signs (last 8hr) Date Time Temp Pulse Resp B/P (MAP) Pulse Ox O2 Delivery O2 Flow Rate FiO2 11/27/24 13:20 71 18 21 74 20 21 11/27/24 12:00 98.2 67 20 120/58 91 Room Air 11/27/24 10:58 71 18 11/27/24 09:01 136/70 LABS: Chemistry Labs: Test 11/27/24 11:12 11/26/24 11:41 Range/Units Whole Blood Glucose 145 #H 70-110 MG/DL Potassium Level 3.5 3.5-5.1 mmol/L Magnesium Level 2.00 1.80-2.40 mg/dL DIAGNOSTICS / RADIOLOGY RESULTS: [ ] Disposition: Per primary team LOWELL PERDOMO SHOCK ABSORBER INSTALLER Nov 27, 2024 16:17
== END 2024-11-27 15:15 | disposition home or self-care (01) | DRG 291 ==
LOC: EDH 10:03 → EDHIP 12:28 → 4BH 21:43
PROVIDERS: ADMIT Internal Medicine; ATTEND Internal Medicine
DX: I11.0 Hypertensive heart disease with heart failure (principal); I50.43 Acute on chronic combined systolic (congestive) and diastolic (congestive) heart failure; J18.9 Pneumonia, unspecified organism; J96.01 Acute respiratory failure with hypoxia; J44.1 Chronic obstructive pulmonary disease with (acute) exacerbation; E87.1 Hypo-osmolality and hyponatremia; J44.0 Chronic obstructive pulmonary disease with (acute) lower respiratory infection; I42.8 Other cardiomyopathies; I48.0 Paroxysmal atrial fibrillation; I45.9 Conduction disorder, unspecified; E78.5 Hyperlipidemia, unspecified; N40.1 Benign prostatic hyperplasia with lower urinary tract symptoms; M54.9 Dorsalgia, unspecified; I25.10 Atherosclerotic heart disease of native coronary artery without angina pectoris; K21.9 Gastro-esophageal reflux disease without esophagitis; Z79.01 Long term (current) use of anticoagulants; Z88.0 Allergy status to penicillin; Z82.49 Family history of ischemic heart disease and other diseases of the circulatory system; Z87.891 Personal history of nicotine dependence; Z95.0 Presence of cardiac pacemaker
CPT/HCPCS: 36415; 36600; 71045; 71250; 80048; 80053; 82803; 82948; 83036; 83735; 83880; 84132; 84145; 84443; 84484; 85025; 85610; 85651; 85730; 86140; 87040; 87071; 87205; 87426; 87804; 87880; 93005; 93306; 94640; 94664; 94760; G0378; J0456; J1815; J1940; J2185; J2919